=== PATIENT | male | born 1940 | race Caucasian/White ===

== ENCOUNTER 2023-07-14 12:02 | Outpatient (CLI) | payer MEDICARE, BC, SELFPAY ==
--- NOTE | 2023-07-14 12:17 | XR_ITS ---
FINAL REPORT CLINICAL HISTORY: RT SHOULDER PAIN FINDINGS: Right shoulder Two views were obtained. There is no acute fracture or dislocation. There are mild hypertrophic changes of the AC joint. The glenohumeral joint is intact. No soft tissue abnormality is identified. IMPRESSION: Mild hypertrophic changes of the AC joint. Reviewed, Interpreted and Dictated by Mati Carrera MD Transcribed by Oksana Drake Authenticated and [facility]
--- NOTE | 2023-07-14 12:19 | XR_ITS ---
FINAL REPORT CLINICAL HISTORY: LT SHOULDER PAIN FINDINGS: Left shoulder Two views were obtained. There is no acute fracture or dislocation. There are mild hypertrophic changes of the AC joint. The glenohumeral joint is intact. No soft tissue abnormality is identified. IMPRESSION: Mild hypertrophic changes of the AC joint. Reviewed, Interpreted and Dictated by Mati Carrera MD Transcribed by Oksana Drake Authenticated and [facility]
== END 2023-07-14 23:59 ==
PROVIDERS: PCP Family Medicine; Visit Provider Family Medicine
DX: M25.511 Pain in right shoulder (principal); M25.512 Pain in left shoulder
CPT/HCPCS: 73030

== ENCOUNTER 2024-07-06 13:41 | Outpatient (CLI) | payer MEDICARE, BC, SELFPAY ==
--- NOTE | 2024-07-06 14:03 | XR_ITS ---
FINAL REPORT CLINICAL HISTORY: Left shoulder pain COMPARISON: 07/14/2023 FINDINGS: Three views show no evidence of acute displaced fracture or dislocation of the visualized bony architecture. The joint spaces appear normal. IMPRESSION: Unremarkable exam. Reviewed, Interpreted and Dictated by Dede Calhoun MD Transcribed by Oksana Drake Authenticated and [facility]
== END 2024-07-06 23:59 | disposition home or self-care (01) ==
LOC: RAD 13:43
PROVIDERS: PCP Family Medicine; Visit Provider Physician Assistant Surgical
DX: M75.42 Impingement syndrome of left shoulder (principal)
CPT/HCPCS: 73030

== ENCOUNTER 2025-01-12 11:37 | Outpatient (CLI) | payer MEDICARE, BC, SELFPAY ==
--- OUTSIDE RECORDS SUMMARY | 2023-08-10 05:30 | XMS_ITS ---
[facility] Organization [facility] Address [address] [facility] [address] [place], [place] [id number] Care Team Providers Care Gastroenterology Technician Name Role Phone Tobi Valiente Unavailable [phone] Allergies No Known Allergies Results Component Value Reference Range Notes Glucose (In-House) Reviewed date:08/11/2023 09:55:00 AM Interpretation:104 Performing Lab: Notes/Report: 104 blood glucose 104 74 - 106 mg/dL Glycohemoglobin A1c (in hous e) Reviewed date:08/11/2023 09:55:00 AM Interpretation:8.4 Performing Lab: Notes/Report: 8.4 glycohemoglobin 8.4% 5 - 6.5 % P-Comprehensive Metabolic Pa jesus alberto (CMP) Reviewed date:08/11/2023 09:54:59 AM Interpretation:Normal Performing Lab: Notes/Report: CLIA: [id number] Kaiser Hairston MD, [employer] [facility] , [address], [place] [address] Test performed by [employer], [employer] Sodium 139 135-145 mEq/L Potassium 4.7 3.5-5.3 mEq/L Chloride 102 97-108 mEq/L CO2 25 22-32 mEq/L Glucose 87 65-99 mg/dL BUN 23 8-23 mg/dL Creatinine 0.95 0.70-1.30 mg/dL Calcium 9.4 8.6-10.4 mg/dL eGFR by Creatinine 80 >59 mL/min/1.73m2 Protein 6.3 6.0-8.3 g/dL Albumin 4.3 3.5-5.3 g/dL Alkaline Phosphatase 95 40-129 IU/L ALT (SGPT) 34 <5-55 IU/L AST (SGOT) 24 <5-46 IU/L Bilirubin, Total 0.9 <0.2-1.2 mg/dL A/G Ratio 2.1 1.1-2.5 mg/dL P-Lipid Panel Reviewed date:08/11/2023 09:55:00 AM Interpretation:hdl 34 Performing Lab: Notes/Report: Test performed by [employer], [address] , [place] [address] Kaiser Hairston MD, [employer] CLIA: [id number] Cholesterol 96 <200 mg/dL Triglycerides 79 <150 mg/dL HDL Cholesterol 34 >39 mg/dL Cholesterol / HDL Ratio 2.82 0.00-4.99 Ratio Non-HDL Cholesterol 62 <130 mg/dL LDL Cholesterol (Calculation) 46 <130 mg/dL LDL Cholesterol Levels* Less than 100 mg/dL Optimal 100 to 129 mg/dL Near Optimal/ Above Optimal 130 to 159 mg/dL Borderline High 160 to 189 mg/dL High 190 mg/dL and above Very High * Categories as recommended by the 2004 ATPIII guidelines LDL/HDL Ratio 1.4 <3.3 Ratio LDL Cholesterol Patient History Test Date: 08/10/2023 LDL Results: 46 Units: mg/dL % Change: - P-TSH reflex to FT4 Reviewed date:08/11/2023 09:55:00 AM Interpretation:Normal Performing Lab: Notes/Report: Test performed by [employer] [address] [place] [address] , [address], [place] [address] Kaiser Hairston MD, [employer] CLIA: [id number] TSH reflex to FT4 4.09 0.43-5.25 mU/L P-Microalbumin/Creatinine, R andom Urine Sample Reviewed date:08/11/2023 09:55:00 AM Interpretation:alb/creat 41 Performing Lab: Notes/Report: Test performed by [employer] [address] [place] [address] , [address], [place] [address] Kaiser Hairston MD, [employer] CLIA: [id number] Albumin/Creatinine Ratio, Urine 41 0-30 ug/m g Microalbumin, Urine, Random 2.1 Creatinine, Urine 51.4 REASON FOR VISIT 6 Month Check Up Medications Medication SIG (Take, Route, Frequency, Duration) Notes Start Date End Date Status Atorvastatin Calcium 80 MG 1 tab(s) orally once a day; Duration: 90 days Active [place]-3 1000 MG 1 cap(s) orally once a day; Duration: 30 day(s) Active Cyclobenzaprine HCl 5 MG 1 tablet at bed time as needed Orally Two times a day 06/22/2023 Not-Taking amLODIPine Besylate 2.5 MG Take 1 tablet by mouth once daily; Duration: 90 Active Toujeo SoloStar 300 UNIT/ML inject 42 units subcutaneously once daily as directed; Duration: 90 days Active metFORMIN HCl ER 500 MG take 2 tablets b y mouth once daily; Duration: 90 days Active Aspirin 81 MG 1 tablet Orally Once a day; Duration: 30 day(s) Active Metoprolol Succinate ER 100 MG take 1 tablet by mouth once daily Orally; Duration: 90 days Active glipiZIDE 5 MG take 1 tablet by ching th once daily; Duration: 90 days Active Telmisartan 80 MG take 1 tablet by ching th once daily Orally; Duration: 90 days Active traMADol HCl 50 MG 1 tab(s) Orally q6h prn 024 Not-Taking Vital Signs Blood pressure systolic 140 mm Hg 04/23/20 24 Blood pressure diastolic 76 mm Hg 024 Heart Rate 56 /min 08/10/2023 Weight 173.8 lbs 08/10/2023 Encounters Encounter Location Date Provider Diagnosis [facility] [address] [place] [address] [place], [place] [id number] 08/10/2023 Tobi Valiente Type 2 diabetes yoshi itus without complications E11.9 ; Primary hypertension I10 and Mixed hyperlipidemia E78.2 Assessments Encounter Date Diagnosis (ICD Code) Assessment Notes Treatment Notes Treatment Clinical Notes Section Notes 08/10/2023 Type 2 diabetes mellitus without complications (ICD-10 - E11.9) 08/10/2023 Primary hypertension (ICD-10 - I10) 08/10/2023 Mixed hyperlipidemia (ICD-10 - E78.2) Plan Of Treatment Medication Medication Name Sig Start Date Stop Date Notes metFORMIN HCl ER 500 MG take 2 tablets b y mouth once daily; Duration: 90 days Metoprolol Succinate ER 100 MG take 1 ta blet by mouth once daily Orally; Duration: 90 days glipiZIDE 5 MG take 1 tablet by ching th once daily; Duration: 90 days Telmisartan 80 MG take 1 tablet by ching th once daily Orally; Duration: 90 days Next Appt Details Follow Up: 6 Months, Reason: Provider Name:Tobi mccracken, 01/12/2025 10:45:00 AM, [address] [place] [address], [address] [place], [place], [phone], Provider Name:Tobi mccracken, 02/09/2025 10:00:00 AM, [address] [place] [address], [place], [place], [phone], Progress Notes * Hayden HIGGINSDOB:1940 (84 yo M)Acc No.[id number]:08/10/2023 Progress Notes Patient: Hayden TATE Provider: Ramirez Valiente M.D. :1940 A ge:82 Y S ex:Male Date:08/10/2023 Address:[address] [place] [address] Subjective: * Chief Complaints: * 1 . 6 Month Check Up. * HPI: C ardiology: 82 year old male presents with c/o Blood Pressure Elevated P t here for 6 mo f/u on hypertension, states he is doing well and does not have any concerns. c/o Hyperlipidemia p t is fasting today. E ndocrinology: c/o Recent Blood Sugars. * ROS: D ERMATOLOGY: no R abdelrahman. n o H phillip. G ASTROENTEROLOGY: no N ausea. n o V omiting. U ROLOGY: no D ifficulty urinating. n o B lood in urine. * Medical History: H ypertension, Hyperlipidemia, Diabetes, Sinus/Allergy, Arthritis, Prostate Problems. * Surgical History: P rostatectomy . * Hospitalization/Major Diagno stic Procedure: D enies Past Hospitalization. * Family History: Diabetes-aunt and great aunt Cancer-sister. * Social History: C URRENT TOBACCO USE: No . C affeine: no. Marital Status: . Alcohol: no. * Medications: T aking Aspirin 81 MG Tablet Delayed Release 1 tablet Orally Once a day , Taking [place]-3 1000 MG Capsule 1 cap(s) orally once a day , Taking Atorvastatin Calcium 80 MG Tablet 1 tab(s) orally once a day , Taking Telmisartan 80 MG Tablet Take 1 tablet by mouth once daily Orally , Taking metFORMIN HCl ER 500 MG Tablet Extended Release 24 Hour Take 2 tablets by mouth once daily , Taking Metoprolol Succinate ER 100 MG Tablet Extended Release 24 Hour Take 1 tablet by mouth once daily , Taking glipiZIDE 5 MG Tablet Take 1 tablet by mouth once daily , Taking Toujeo SoloStar 300 UNIT/ML Solution Pen-injector inject 42 units subcutaneously once daily as directed , Taking amLODIPine Besylate 2.5 MG Tablet Take 1 tablet by mouth once daily , Not-Taking Cyclobenzaprine HCl 5 MG Tablet 1 tablet at bedtime as needed Orally Two times a day , Not-Taking traMADol HCl 50 MG Tablet 1 tab(s) Orally q6h prn , Medication List reviewed and reconciled with the patient * Allergies: N .K.D.A. Objective: * Vitals: W t:173.8, Temp:98.1, BP:140/76, HR:56, Nurse:monroe. * Examination: E ndocrinology: General Appearance: N AD. H eart: R SR. L ungs:?clear to auscultation. E xtremities: n o leg edema. Assessment: * Assessment: 1. T ype 2 diabetes mellitus without complications - E11.9 (Primary) 2 . P rimary hypertension - I10 3 . M ixed hyperlipidemia - E78.2 Plan: * Treatment: Value Reference Range A /G Ratio 2.1 1.1-2.5 - mg/dL * A lbumin 4.3 3.5-5.3 - g/dL * A lkaline Phosphatase 95 40-129 - IU/L * A LT (SGPT) 34 <5-55 - IU/L * A ST (SGOT) 24 <5-46 - IU/L * B ilirubin, Total 0.9 <0.2-1.2 - mg/dL * B UN 23 8-23 - mg/dL * C alcium 9.4 8.6-10.4 - mg/dL * C hloride 102 97-108 - mEq/L * C O2 25 22-32 - mEq/L * C reatinine 0.95 0.70-1.30 - mg/dL * G lucose 87 65-99 - mg/dL * P otassium 4.7 3.5-5.3 - mEq/L * S odium 139 135-145 - mEq/L * P rotein 6.3 6.0-8.3 - g/dL * e GFR by Creatinine 80 >59 - mL/min/1.73m2 * Brooklyn Beckwith 08/11/2023 9:53 :27 AM >See phone encounter ?LAB: P-TSH reflex to FT4 (Collection Date & Time - 08/10/2023 08:55 AM)? Normal* Value Reference Range T SH reflex to FT4 4.09 0.43-5.25 - mU/L * Brooklyn Beckwith 08/11/2023 9:53 :27 AM >See phone encounter ?LAB: P-Microalbumin/Creatinine, Random Urine Sample (Collection Date & Time - 08/10/2023 08:55 AM)?alb/creat 41* Value Reference Range A lbumin/Creatinine Ratio, Urine 41 H 0-30 - ug /mg * C reatinine, Urine 51.4 - mg/dL * M icroalbumin, Urine, Random 2.1 - mg/dL * Brooklyn Beckwith 08/11/2023 9:53 :27 AM >See phone encounter ?LAB: Glucose (In-House) (Collection Date & Time - 08/10/2023)?104* Value Reference Range b lood glucose 104 74 - 106 mg/dL * AdyGeorgette 08/10/2023 1 0:17:25 AM > Brooklyn Beckwith 08/11/2023 9:53:27 AM >See phone encounter ?LAB: Glycohemoglobin A1c (in house) (Collection Date & Time - 08/10/2023)? 8.4* Value Reference Range g lycohemoglobin 8.4% 5 - 6.5 % * AdyGeorgette 08/10/2023 1 0:20:29 AM > Brooklyn Beckwith 08/11/2023 9:53:27 AM >See phone encounter 2.?Primary hypertension? Refill Metoprolol Succinate ER Tablet Extended Release 24 Hour, 100 MG, take 1 tablet by mouth oncedaily, Orally, 90 days, 90, Refills 1;?Refill Telmisartan Tablet, 80 MG, take 1 tablet by mouth once daily, Orally, 90 days, 90, Refills 1.?LAB: P-Comprehensive Metabolic Panel (CMP) (Collection Date & Time - 08/10/2023 08:55 AM)?Normal* Value Reference Range A /G Ratio 2.1 1.1-2.5 - mg/dL * A lbumin 4.3 3.5-5.3 - g/dL * A lkaline Phosphatase 95 40-129 - IU/L * A LT (SGPT) 34 <5-55 - IU/L * A ST (SGOT) 24 <5-46 - IU/L * B ilirubin, Total 0.9 <0.2-1.2 - mg/dL * B UN 23 8-23 - mg/dL * C alcium 9.4 8.6-10.4 - mg/dL * C hloride 102 97-108 - mEq/L * C O2 25 22-32 - mEq/L * C reatinine 0.95 0.70-1.30 - mg/dL * G lucose 87 65-99 - mg/dL * P otassium 4.7 3.5-5.3 - mEq/L * S odium 139 135-145 - mEq/L * P rotein 6.3 6.0-8.3 - g/dL * e GFR by Creatinine 80 >59 - mL/min/1.73m2 * Brooklyn Beckwith 08/11/2023 9:53 :27 AM >See phone encounter 3.?Mixed hyperlipidemia?LAB: P-Comprehensive Metabolic Panel (CMP) (Collection Date & Time - 08/10/2023 08:55 AM)?Normal* Value Reference Range A /G Ratio 2.1 1.1-2.5 - mg/dL * A lbumin 4.3 3.5-5.3 - g/dL * A lkaline Phosphatase 95 40-129 - IU/L * A LT (SGPT) 34 <5-55 - IU/L * A ST (SGOT) 24 <5-46 - IU/L * B ilirubin, Total 0.9 <0.2-1.2 - mg/dL * B UN 23 8-23 - mg/dL * C alcium 9.4 8.6-10.4 - mg/dL * C hloride 102 97-108 - mEq/L * C O2 25 22-32 - mEq/L * C reatinine 0.95 0.70-1.30 - mg/dL * G lucose 87 65-99 - mg/dL * P otassium 4.7 3.5-5.3 - mEq/L * S odium 139 135-145 - mEq/L * P rotein 6.3 6.0-8.3 - g/dL * e GFR by Creatinine 80 >59 - mL/min/1.73m2 * Brooklyn Beckwith 08/11/2023 9:53 :27 AM >See phone encounter ?LAB: P-Lipid Panel (Collection Date & Time - 08/10/2023 08:55 AM)?hdl 34* Value Reference Range C holesterol / HDL Ratio 2.82 0.00-4.99 - Ratio * C holesterol 96 <200 - mg/dL * H DL Cholesterol 34 L >39 - mg/dL * L DL Cholesterol (Calculation) 46 <130 - mg/d L * L DL/HDL Ratio 1.4 <3.3 - Ratio * N on-HDL Cholesterol 62 <130 - mg/dL * T riglycerides 79 <150 - mg/dL * Brooklyn Beckwith 08/11/2023 9:53 :27 AM >See phone encounter * Procedure Codes: G 2211 Complex e/[place], [address] GLUCOSE TEST, 57909 GLYCATED HEMOGLOBIN TEST, Modifiers: QW * Follow Up: 6 Months * Images: Billing Information: * Visit Code: 00739 Office Visit, Est Pt., Level 4. * Procedure Codes: G2211 Complex e/[place]. [address] GLUCOSE TEST. 15473 GLYCATED HEMOGLOBIN TEST. Modifiers: QW * Electronic signature of Nicol Valiente MD on 01/12/2025 at 11:39 AM EDT Sign off status: Pending * Provider: Ramirez Valiente M.D. Date: 0 08/10/2023 Generated for Cheri orellana/Julia/Marthasmitting on: 0 01/12/2025 11:39 AM EDT History and Physical Notes * HPI (History of Present Illness) Category Sub-Category Detail Notes Category Not es Endocrinology Recent Blood Sugars Cardiology Blood Pressure Elevated Pt here for 6 mo f/u on hypertension, states he is doing well and does not have any concerns Hyperlipidemia pt is fasting today Examination Category Sub-Category Detail Notes Category Not es Endocrinology Heart: RSR Lungs: clear to auscultatio n Extremities: no leg edema General Appearance: NAD
--- OUTSIDE RECORDS SUMMARY | 2023-08-23 07:30 | XMS_ITS ---
Author Organization [facility] Address [address] [facility] [address] [place] [id number] Care Team Providers Care Chief Nursing Executive Name Role Phone Tobi Valiente Unavailable [phone] Results Component Value Reference Range Notes Glucose [...] 1 tab(s) Orally q6h prn 06/22/2023 Not-Taking Nome-3 1000 MG 1 cap(s) orally once a [...] Active Encounters Encounter Location Date Provider Diagnosis [facility] [address] [facility] [address] [place] [id number] 08/23/2023 Tobi Valiente Plan Of Treatment Next Appt Details Provider Name:Tobi Bland kaykay, 01/12/2025 10:45:00 AM, [address] [facility] [address], [address], [place], [id number], Provider Name:Tobi Bland kaykay, 02/09/2025 10:00:00 AM, [address] [facility] [address] [facility], [address], [place], [phone], Progress Notes * Hayden HIGGINSDOB:1940 (84 yo M)Acc No.[id number]:08/23/2023 Patient: Hayden TATE Provider: Ramirez Valiente M.D. :1940 A ge:82 Y S ex:Male Date:08/23/2023 Address:[address] [place] [address] Subjective: * Chief Complaints: * 1 . Test blood sugar. * Medical History: * Medications: T aking Aspirin 81 MG Tablet Delayed Release 1 tablet Orally Once a day , Taking Nome-3 1000 MG Capsule 1 cap(s) orally once [...] 242 74 - 106 mg/dL * Georgette aGrsia 08/23/2023 11 :48:49 AM >Radha Huerta 09/06/2023 10:54:58 AM > patient was without insulin at the time. Per ARAMIS- Dr. Valiente reviewed results. * Procedure Codes: 3 6416 CAPILLARY BLOOD DRAW, 38264 GLUCOSE TEST * Images: Billing Information: * Visit Code: * Procedure Codes: 00516 CAPILLARY BLOOD DRAW. 18990 GLUCOSE TEST. * Electronic signature of Nicol Valiente MD on 01/12/2025 at 11:40 AM EDT Sign off status: Pending * Provider: Ramirez Valiente M.D. Date: 0 08/23/2023 Generated for Cheri orellana/Julia/Marthasmitting on: 0 01/12/2025 11:40 AM EDT
--- OUTSIDE RECORDS SUMMARY | 2024-02-09 05:45 | XMS_ITS ---
Author [facility] Address [address] [place], [place] [id number] Care Team Providers Care Head Filter Tank Tender Helper Name Role Phone Tobi Valiente Unavailable [phone] Allergies No Known Allergies Results Component Value [...] 54, bun 24 Performing Lab: Notes/Report: CLIA: [id number] Kaiser Hairston MD, Freight Delivery Driver [facility]0 [facility] , [address], [place] [address] Test performed by [employer] Sodium 144 135-145 mmol/L Potassium 4.4 3.5-5.3 [...] 37 Performing Lab: Notes/Report: Test performed by [facility], [address] , [address], [place] [address] Kaiser Hairston MD, Freight Delivery Driver CLIA: [id number] Cholesterol 110 <200 mg/dL Triglycerides 62 <150 [...] once daily Orally; Duration: 90 days Active Rex-3 1000 MG 1 cap(s) orally once a [...] Provider Diagnosis [facility] [address] [place] [phone] 02/09/2024 Tobi Valiente Type 2 diabetes yoshi [...] Reason: Provider Name:Tobi mccracken, 01/12/2025 10:45:00 AM, [address] [place] [address], [address], [place], [place], [id number], Provider Name:Tobi mccracken, 02/09/2025 10:00:00 AM, [address] [place] [address], [facility], [place], [place], [id number], Progress Notes * Hayden HIGGINSDOB:1940 (84 yo M)Acc No.[id number]:02/09/2024 Progress Notes Patient: Hayden TATE Provider: Ramirez Valiente M.D. :1940 A ge:83 Y S ex:Male Date:02/09/2024 Address:[address] [place], [place] [id number] Subjective: * Chief Complaints: * 1 . [...] tablet Orally Once a day , Taking Rex-3 1000 MG Capsule 1 cap(s) orally once [...] T riglycerides 62 <150 - mg/dL * Radha Huerta 02/10/2024 8:36 :07 AM >See phone encounter * Immunizations: Fluzone High Dose (65yr and older) : 0.5 mL (Route: Intramuscular) given by Mary Ellen Salvador on Left Deltoid (Encounter for immunization) PNEUMOVAX 23 VACCINE : 0.5 mL (Route: Intramuscular) given by Mary Ellen Salvador on Left Deltoid (Encounter for immunization) * Procedure Codes: 8 2950 GLUCOSE TEST, 22737 GLYCATED HEMOGLOBIN TEST, Modifiers: QW * Follow Up: 6 Months * Images: Billing Information: * Visit Code: 51242 Office Visit, Est Pt., Level 4. * Procedure Codes: 25217 GLUCOSE TEST. 63281 GLYCATED HEMOGLOBIN TEST. Modifiers: QW * Electronic signature of Nicol Valiente MD on 01/12/2025 at 11:39 AM EDT Sign off status: Pending * Provider: Ramirez Valiente M.D. Date: Generated for Cheri orellana/Julia/eTransmitting on: 0 01/12/2025 11:39 AM EDT History [...]
--- OUTSIDE RECORDS SUMMARY | 2024-08-09 05:15 | XMS_ITS ---
Author Organization [facility] Address [address] [facility] [address] [place], [place] [id number] Care Team Providers Care Tire Technician Name Role Phone Tobi Valiente Unavailable [phone] Allergies No Known Allergies Results Component Value Reference Range Notes P-Comprehensive Metabolic Pa jesus alberto (CMP) Reviewed date:08/10/2024 08:47:18 AM Interpretation:gluc 57 Performing Lab: Notes/Report: Test performed by [facility] [address] [place] [address] , [address], [place] [address] Kaiser Hairston MD, House Coordinator CLIA: [id number] Sodium 144 135-145 mmol/L Potassium 4.2 3.5-5.3 [...] Interpretation:9.4 Performing Lab: Notes/Report: Test performed by [facility] [address] [place], [place] [address] [place] [address], [place] [address] Kaiser Hairston MD, House Coordinator CLIA: [id number] Hemoglobin A1C 9.4 <5.7 % The following HbA1c ranges recommended by the [place] Diabetes [employer] (ADA) may be used as an aid in the diagnosis of diabetes mellitus. HbA1c Suggested Diagnosis >=6.5% Diabetic 5.7% - 6.4% Pre-Diabetic <5.7% Non-Diabetic P-Lipid Panel Reviewed date:08/10/2024 08:47:18 AM Interpretation:hdl 33 Performing Lab: Notes/Report: Test performed by [facility] [address] [place], [place] [address] [address], [place] [address] Kaiser Hairston MD, House Coordinator CLIA: [id number] Cholesterol 108 <200 mg/dL Triglycerides 66 <150 [...] Normal Performing Lab: Notes/Report: Test performed by [facility] [address] [place] [address] , [place] [address] Kaiser Hairston MD, House Coordinator CLIA: [id number] TSH reflex to FT4 3.72 0.43-5.25 mU/L P-Microalbumin/Creatinine, R andom Urine Sample Reviewed date:08/10/2024 08:47:18 AM Interpretation: Normal Performing Lab: Notes/Report: Test performed by [facility] [address] [place] [address] , [place] [address] Kaiser Hairston MD, House Coordinator CLIA: [id number] Albumin/Creatinine Ratio, Urine 58 0-30 ug/m g Microalbumin, Urine, Random 4.9 Creatinine, Urine 84.7 Estimated Average Glucose Reviewed date:08/10/2024 08:47:18 AM Interpretation: Normal Performing Lab: Notes/Report: Test performed by [facility] [address] [place] [address] , [address], [place] [address] Kaiser Hairston MD, House Coordinator IA: [id number] Estimated Average Glucose (eAG) 223 Estimated Average [...] once daily Orally; Duration: 90 days Active [place]-3 1000 MG 1 cap(s) orally once a [...] Provider Diagnosis [facility] [address] [facility] [address] [place] [address], [place] [phone] 08/09/2024 Tobi Valiente Type 2 diabetes yoshi [...] Reason: Provider Name:Tobi mccracken, 01/12/2025 10:45:00 AM, [address] [place] [address], [address], [place], [place], [phone], Provider Name:Tobi mccracken, 02/09/2025 10:00:00 AM, [address] [place] [address], [address], [place], [place], [id number], Progress Notes * GISELA, HaydenDOB:1940 (84 yo M)Acc No.[id number]:08/09/2024 Progress Notes Patient: Hayden TATE Provider: Ramirez Valiente M.D. :1940 A ge:83 Y S ex:Male Date:08/09/2024 Address:[address] [place] [address] Subjective: * Chief Complaints: * 1 . 6 month f/u. * HPI: C ardiology: 83 year old male presents with c/o Blood Pressure Elevated?Pt here for 6 mo f/u on hypertension, [...] tablet Orally Once a day , Taking [place]-3 1000 MG Capsule 1 cap(s) orally once [...] hronic diarrhea - K52.9 5 . B CA 27.0-27.9,adult - Z68.27 Plan: * Treatment: Value [...] stimated Average Glucose 223 - mg/dL * [facility], IT support 08/10/2024 06:20:03 : This order [...] * Images: Billing Information: * Visit Code: 24004 Office Visit, Est Pt., Level 4. * [...] M.D. Date: 0 08/09/2024 Generated for Cheri orellana/Julia/Essenceitting on: 0 01/12/2025 11:40 AM EDT History and Physical Notes * [...]
--- OUTSIDE RECORDS SUMMARY | 2025-01-12 11:40 | XMS_ITS ---
Author Organization Unknown Vital Signs BpStanding BpSitting BpSupine Date Temperature HeartRate Weight Hei ght Spo2 Respiration Bmi HeadCircumference FieldCount TimeRecorded NeckCircumferen ce WaistCircumference Pulse 140/84 08/09 00:00 :00 97.9 55 177,9.6 0 5,8 27 6 11/14/2024 09:15:00 140/74 02/08 00:00 :00 97.8 58 177,0 4 11/14/2024 09:45:00
--- OUTSIDE RECORDS SUMMARY | 2025-01-12 11:40 | XMS_ITS | Clinical Summary ---
Author Organization [facility] Address [address] [place] [address] Care Team Providers Care Boilermaker Welder Name Role Phone Chintan Phillips MD Primary Care Provider [phone] Allergies No known active allergies Medications omega-3 acid ethyl esters (LOVAZA) 1 g capsule Take 2 g by mouth 2 (Two) Times a Day. 1 Active metFORMIN ER (GLUCOPHAGE-XR ) 500 MG 24 hr tablet TAKE 2 TABLETS BY MOUTH ONCE DAILY AT SUPPER TIME 1 Active metoprolol succinate XL (TOPROL-XL) 100 MG 24 hr tablet Take 100 mg by mouth Every Morning. 1 Active atorvastatin (LIPITOR) 80 MG tablet 1 Active telmisartan (MICARDIS) 80 MG tablet 1 Active glipizide (GLUCOTROL XL) 5 MG ER tablet 1 Active amLODIPine (NORVASC) 2.5 MG tablet 1 Active ASPIRIN 81 PO Take by mouth. 3 Active Toujeo SoloStar 300 UNIT/ML solution pen-injector injection INJECT 42 UNITS SUBCUTANEOUSLY IN THE EVENING 1 Active Active Problems No known active problems Family History Medical History Relation Name Comments Diabetes Maternal Aunt Diabetes Paternal Aunt Relation Name Status Comments Maternal Aunt Paternal Aunt Social History Tobacco Use Types Packs/Day Years Used Date Smoking Tobacco: Former Cigarettes 1 16 1 - 1977 Smokeless Tobacco: Former Chew Alcohol Use Standard Drinks/Week Comments Never 0 (1 standard drink = 0.6 oz pur e alcohol) AUDIT-C Answer Date Recorded Q1: How often do you have a drink containing alc ohol? Never 07/15/2020 Average Number of Drinks Not on file Frequency of Binge Drinking Not on file 06/18 Abuse Screen Answer Date Recorded Unsafe at Home or Work/School Not on file Feels Threatened by Someone? Not on file 12/2022 Does Anyone Keep You from Co ntacting Others or Doint Things Outside the Home? Not on file 01/25/2023 Physical Sign of Abuse Present Not on file 1 Housing Stability Answer Date Recorded Current Living Arrangements Not on file 12/2022 Potentially Unsafe Housing Conditions Not on baldomero e 01/25/2023 Family and Community Support Answer Brown e Recorded Help with Day-to-Day Activities Not on file 01/25/2023 Lonely or Isolated Not on file 01/25/2023 Employment Answer Date Recorded Do you want help finding or keeping work or a sydni b? Not on file 01/25/2023 Disabilities Answer Date Recorded Concentrating, Remembering, or Making Decisions Difficulty Not on file 01/25/2023 Doing Errands Independently Difficulty Not on fi le 01/25/2023 Education Answer Date Recorded Help with school or training? Not on file Preferred Language Not on file 01/25/2023 Sex and Gender Information Value Date Recorded Sex Assigned at Not on file Legal Sex Male 10:38 AM EDT Gender Identity Not on file Sexual Orientation Not on file Last Filed Vital Signs Vital Sign Reading Time Taken Comments Blood Pressure 166/73 08/21/2020 11:41 AM EDT Pulse 64 08/21/2020 11:41 AM EDT Temperature 36.9 C (98.4 F) 03/06/2013 1:40 PM EST Respiratory Rate - - Oxygen Saturation 96% 03/06/2013 1:40 PM EST Inhaled Oxygen Concentration - - Weight 77.9 kg (171 lb 12.8 oz) 021 11:41 AM EDT Height 172.7 cm (5' 7.99 ) 08/21/2020 1 1:41 AM EDT Body Mass Index 26.13 08/21/2020 11:41 AM EDT Plan of Treatment Health Maintenance Due Date Last Done Comments TDAP/TD VACCINES (1 - Tdap) 1960 ZOSTER VACCINE (1 of 2) 12/20/1991 Pneumococcal Vaccine 50+ (2 of 2 - PCV) 04/24/2000 0 04/24/1999 RSV Vaccine - Adults (1 - 1- dose 75+ series) 2016 ANNUAL PHYSICAL 07/15/2020 INFLUENZA VACCINE 11/17/2024 12/27/2019 COVID-19 Vaccine (2024- season) 2024, 06/13/2020 Insurance [facility] MEDICARE A & B Care Teams Boilermaker Welder Relationship Specialty Start Date End Date Chintan Phillips MD [address] [place] [address] PCP - General Family Medicine 07/15/20
--- OUTSIDE RECORDS SUMMARY | 2025-01-12 11:40 | XMS_ITS | Clinical Summary ---
Author Organization [facility] Address [address] [place] [address] Phone Care Team Providers Care Analysis Evaluator Name Role Phone Status, Fax Unavailable Conditions or Problems Problem Name Problem Code Onset Date Status Entry Date Provider Comment Standard Description Annotate Headache 69935782 (SNOMED CT) 07/17 Active 07/17 Sima Mayes Headache ADR T50.905A (ICD-10-CM) 07/17 Active 07/17 Sima Mayes Adverse effect of unspecified drugs, medicaments and biological substances, initial encounter Lung mass 984043189 (SNOMED CT) 05/08 Active 05/08 Moriah Nordan Lung mass 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 05/08 Moriah Artur Pneumonia in diseases classified elsewhere Medications Medication Instructions Start Date Stop Date Generic Name NDC Provider ITRACONAZOLE 100 MG CAPS take 2 o bid ITRACONAZOLE [id number] Gallo Oviedo MD ITRACONAZOLE 100 MG CAPS take 2 po tid x 3 days then take 2 po bid with carbonated beverage ITRACONAZOLE [id number] Gallo Oviedo MD ITRACONAZOLE 100 MG CAPS take 2 o bid ITRACONAZOLE [id number] Gallo Oviedo MD MULTIVITAMINS ORAL CAPSULE MULTIPLE VITAMIN [id number] Elena Z ITRACONAZOLE 100 MG CAPS take 2 po bid ITRACONAZOLE [id number] Elena Z ITRACONAZOLE 100 MG CAPS take 2 po bid ITRACONAZOLE [id number] Gallo Oviedo MD ITRACONAZOLE 100 MG CAPS take 2 po tid x 3 days then take 2 po bid with carbonated beverage ITRACONAZOLE [id number] Gallo Oviedo MD MULTIVITAMINS ORAL CAPSULE MULTIPLE VITAMIN [id number] Melodie Sutherland TOPROL XL 50 MG [id number] METOPROLOL SUCCINATE [id number] Melodie Sutherland PRAVACHOL 40 MG ORAL TABLET PRAVASTATIN SODIUM 10384795669 Melodie Sutherland MULTIVITAMINS ORAL CAPSULE MULTIPLE VITAMIN 74190620051 Melodie Sutherland METFORMIN HCL 1000 MG TABS METFORMIN HCL 36872210213 Melodie Sutherland LOVAZA 1 GM CAPS [id number] ETHYL ESTERS 81071616713 Melodie Sutherland LEVEMIR SOLUTION INSULIN DETEMIR SOLN [id number] Melodie Sutherland DIOVAN 160 MG TABS VALSARTAN [id number] Melodie Sutherland ADULT ASPIRIN EC LOW STRENGTH 81 MG ORAL TABLET DELAYED RELEASE ASPIRIN 47017040974 Melodie Sutherland ACTOS 30 MG TABS PIOGLITAZONE HCL 41151932141 Melodie Sutherland Medications Administered No information available. Allergies, Adverse Reactions, Alerts No information available. Results Date Name Value Unit Range Flag Description Lab Report: Histoplasma Anti gen, Urine, Histoplasma Antigen, Serum HIS AG UR 0.00 EU {EIA'U} Histoplasma capsulatum Ag [Units/volume] in Urine by Immunoassay Lab Report: Comprehensive [place] tabolic Panel ANIONGAP 3 mmol/L 3-11 N anion gap, s apollo GFRC 113 mL/min/1. 73m2 Glomerular Filtration Rate Calculation ALBUMIN 4.4 g/dL 3.2-4.8 N Albumin [Mass/volume] in Serum or Plasma PROTEIN, TOT 7.1 g/dL 5.7-8.2 N Protein [Mass/volume] in Serum or Plasma BILI TOTAL 0.7 mg/dL 0.3-1.2 N Bilirubin. total [Mass/volume] in Serum or Plasma SGPT (ALT) 20 U/L 7-40 N Alanine aminotransferase [Enzymatic activity/volume] in Serum or Plasma SGOT (AST) 24 U/L 0-33 N Aspartate aminotransferase [Enzymatic activity/volume] in Serum or Plasma ALK PHOS 72 U/L 25-100 N Alkaline pascual sphatase [Enzymatic activity/volume] in Blood CALCIUM 9.5 mg/dL 8.7-10.4 N Calcium [Moles/volume] in Serum or Plasma CO2 33 mmol/L 20-31 H Carbon dioxid e, total [Moles/volume] in Venous blood CHLORIDE 105 mmol/L 99-109 N Chloride [Moles/volume] in Serum or Plasma POTASSIUM 4.3 mmol/L 3.5-5.5 N Potassium [Moles/volume] in Serum or Plasma SODIUM 141 mmol/L 132-146 N Sodium [Moles/volume] in Serum or Plasma CREATININE 0.7 mg/dL 0.6-1.3 N Creatinine [Mass/volume] in Serum or Plasma BUN 17 mg/dL 9-23 N Urea nitrogen [Mass/volume] in Serum or Plasma GLUCOSE SER 96 mg/dL 70-100 N Glucose [Mass/volume] in Serum or Plasma Lab Report: Itraconazole, Se rum/Plasma [id number] 1.4 ug/mL GE use only - for LinkLogic import when terms are not otherwise specified Office Visit: rm6 MEDS REVIEW Done Documenta tion of current medications (procedure) SMOK STATUS Former smoker Tobacco smoking status Plan of Care Type Date Detail Pending order Continue oral an tibiotics Pending order CMP Pending order Itraconazole Lev el Pending order Continue oral an tibiotics Pending order Continue oral an tibiotics Pending order CMP Pending order Itraconazole Lev el Pending order CMP Pending order Itraconazole Lev el Pending order CMP Pending order T-SPOT Pending order Histoplasmosis U rinary AG Pending order Other Procedures Code Procedure Name Date Entry Date CPT-Cooral Continue oral antibiotics 20 01/10/03 CPT-49518 CMP CPT-96683 Itraconazole Level 4 CPT-Cooral Continue oral antibiotics 20 31/07/29 CPT-Cooral Continue oral antibiotics 20 30/06/25 CPT-63661 CMP CPT-05614 Itraconazole Level 6 CPT-79765 [facility] CPT-33669 Itraconazole Level 6 CPT-50870 [facility] CPT-97253 T-SPOT CPT-46882 Histoplasmosis Urinary AG 20 02/05/27 CPT-LAB Other Vital Signs Date Name Value Unit Description BMI (Body Mass Index) 27.59 kg/m2 Bod y Mass Index (Ratio) Body Temperature 98.0 [degF] temperat ure E&M BP Diastolic 68 mm[Hg] blood pressu re, diastolic BP Systolic 150 mm[Hg] blood pressur e, systolic Heart Rate 70 /min pulse rate Height 68 [in_us] height E&M Respiratory Rate 14 /min respirat ory rate E&M Weight Measured 180.8 [lb_av] weight E& M Weight Measured 180.8 [lb_av] weight E& M Immunizations No information available. Advance Directives No information available.
--- OUTSIDE RECORDS SUMMARY | 2025-01-12 11:40 | XMS_ITS | Clinical Summary ---
Author Organization [facility] Address [address] [place] [address] Care Team Providers Care Patient Account Specialist Name Role Phone Chintan Phillips MD Primary Care Provider [phone] Allergies No known active allergies Medications Aspirin Buf,CaCarb-MgCarb- MgO, 81 MG tablet 08/18/2016 A ctive atorvastatin (Lipitor) 80 MG tablet 07/06/2017 Active glipiZIDE XL (Glucotrol XL) 5 MG 24 hr tablet 07/13/2017 Act freedom insulin glargine (Toujeo SoloStar) 300 UNIT/ML injection 04/29/2017 Active metFORMIN (Glucophage) 1000 MG tablet 06/13/2015 Active metoprolol succinate XL (Toprol-XL) 100 MG 24 hr tablet 06/13/2015 Active omega-3 (Fish Oil) 1000 MG capsule 07/03/2015 Act freedom valsartan (Diovan) 160 MG tablet 01/24/2015 Activ e Active Problems Problem Noted Date Diagnosed Date 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 02/04/2022 Glaucoma suspect of both eyes 12/17/2020 Type 2 diabetes mellitus wit h hyperosmolarity without coma, with long-term current use of insulin 12/17/2020 Dermatochalasis of both upper eyelids 12/17/2020 Resolved Problems Problem Noted Date Diagnosed Date Resolved Date Presbyopia 02/04/2022 01/07/2025 Regular astigmatism of both eyes 02/04/2022 01/07/2025 Nuclear sclerotic cataract of both eyes 12/17/2020 01/07/2025 Asteroid hyalosis of left eye 12/17/2020 02/04/2022 Family History Medical History Relation Name Comments Cardiac disorder Maternal Grandmother Cardiac disorder Other 1 Diabetes Other 2 Other cancer Sister Relation Name Status Comments Maternal Grandmother Other 1 Other 2 Sister Social History Tobacco Use Types Packs/Day Years Used Date Smoking Tobacco: Former Cigarettes Q uit: 1970 Smokeless Tobacco: Never Tobacco Cessation:Counseling Given: Not Answered Alcohol Use Standard Drinks/Week Comments No 0 (1 standard drink = 0.6 oz pur e alcohol) Sex and Gender Information Value Date Recorded Sex Assigned at Not on file Legal Sex Male 6:14 PM EDT Gender Identity Not on file Sexual Orientation Not on file Plan of Treatment Health Maintenance Due Date Last Done Comments [facility]-Depression Screening 1940 [facility]-Diabetes: Hemoglobin A1C 1940 [facility]-Medicare Annual Wellness (AWV) 1940 [facility]-/Child/Adol SDOH Screenings 1940 Diabetes: Dental Exam 12/20/1951 [facility]- SDOH Screenings 12/20/1959 [facility]-Adult SDOH Screenings 12/20/1959 [facility]-DTaP,Tdap,and Td Vaccines (1 - Tdap) 1960 [facility]-Zoster Vaccines (1 of 2) 12/20/1991 [facility]-Pneumococcal Vaccine: 50+ Years (2 of 2 - PCV) 04/24/2000 04/24/1999 [facility]-RSV Vaccine: 60+ Years or (1 - 1-dose 75+ series) 2016 ZNY-[id number]-30 Vaccine (4 - season) 2024 02/12/2021, 07/11/2020, 06/13/2020 [facility]-Influenza Vaccine (#1) 2024 12/27/2019 [facility]-Hepatitis A Vaccines Aged Out 02/02/2019 No longer eligible based on patient's age to complete this topic HPV Vaccines Aged Out No longer eligi ble based on patient's age to complete this topic [facility]-HIB Vaccines Aged Out No longer e ligible based on patient's age to complete this topic [facility]-IPV Vaccines Aged Out No longer e ligible based on patient's age to complete this topic [facility]-Rotavirus Vaccines Aged Out No lo nger eligible based on patient's age to complete this topic Insurance MEDICARE ANTH Care Teams Patient Account Specialist Relationship Specialty Start Date End Date Chintan Phillips MD [address] [place] [id number] PCP - General 08/30/20
--- OUTSIDE RECORDS SUMMARY | 2025-01-12 11:40 | XMS_ITS | Patient Health Record ---
[facility] Organization [facility] [address] [facility] [address] [place] [id number] Care Team Providers Care Oil Well Service Unit Operator Name Role Phone Tobi Valiente Unavailable [phone] Allergies No Known Allergies Results Component Value Reference Range Notes Glucose (In-House) Reviewed date:02/09/2024 12:20:35 PM Interpretation: Performing Lab: Notes/Report: blood glucose 74 74 - 106 mg/dL Glycohemoglobin A1c (in hous e) Reviewed date:02/09/2024 12:20:43 PM Interpretation: Performing Lab: Notes/Report: glycohemoglobin 7.5% 5 - 6.5 % P-Comprehensive Metabolic Pa jesus alberto (CMP) Reviewed date:02/10/2024 08:36:15 AM Interpretation:gluc 54, bun 24 Performing Lab: Notes/Report: Test performed by [facility] [facility] , [address], [place] [address] Kaiser Hairston MD, Infantry Assaultman CLIA: [id number] Sodium 144 135-145 mmol/L Potassium 4.4 3.5-5.3 [...] 37 Performing Lab: Notes/Report: Test performed by [facility], [address] , [address], [place] [address] Kaiser Hariston MD, Infantry Assaultman CLIA: [id number] Cholesterol 110 <200 mg/dL Triglycerides 62 <150 [...] Results: 61 Units: mg/dL % Change: +32% CBC Fingerstick (in house) ( Not yet reviewed by provider) Interpretation: Performing Lab: Notes/Report: wbc 8.6 3.5 - 10 lym 15.6% 15 - 50 mid 4.8% 2 - 15 gran 79.6% 35 - 80 rbc 5.15 3.5 - 5.5 hgb 15.5 11.5 - 16.5 hct 45.7 35 - 55 mcv 88.7 75 - 100 mch 30.0 25 - 35 mchc 33.8 31 - 38 plat 124 100 - 400 P-Comprehensive Metabolic Pa jesus alberto (CMP) Reviewed date:08/10/2024 08:47:18 AM Interpretation:gluc 57 Performing Lab: Notes/Report: Test performed by [facility] [address] [place] [address] , [address], [place] [address] Kaiser Hairston MD, Infantry Assaultman CLIA: [id number] Sodium 144 135-145 mmol/L Potassium 4.2 3.5-5.3 [...] Interpretation:9.4 Performing Lab: Notes/Report: Test performed by [facility] [address] [place] [address] [address], [place] [address] Kaiser Hairston MD, Infantry Ass[employer]man CLIA: [id number] Hemoglobin A1C 9.4 <5.7 % The following HbA1c ranges recommended by the [place] [employer] (ADA) may be used as an aid in the diagnosis of diabetes mellitus. HbA1c Suggested Diagnosis >=6.5% Diabetic 5.7% - 6.4% Pre-Diabetic <5.7% Non-Diabetic P-Lipid Panel Reviewed date:08/10/2024 08:47:18 AM Interpretation:hdl 33 Performing Lab: Notes/Report: Test performed by [facility] [address] [place], [place] [address] [address], [place] [address] Kaiser Hairston MD, Infantry Assaultman CLIA: [id number] Cholesterol 108 <200 mg/dL Triglycerides 66 <150 [...] Normal Performing Lab: Notes/Report: Test performed by [facility] [address] [place], [place] [address] [address] , [address], [place] [address] Kaiser Hairston MD, Infantry Assaultman CLIA: [id number] TSH reflex to FT4 3.72 0.43-5.25 mU/L P-Microalbumin/Creatinine, R andom Urine Sample Reviewed date:08/10/2024 08:47:18 AM Interpretation: Normal Performing Lab: Notes/Report: Test performed by [facility] [address] [place] [address] , [address], [place] [address] Kaiser Hairston MD, Infantry Assaultman CLIA: [id number] Albumin/Creatinine Ratio, Urine 58 0-30 ug/m g Microalbumin, Urine, Random 4.9 Creatinine, Urine 84.7 Estimated Average Glucose Reviewed date:08/10/2024 08:47:18 AM Interpretation: Normal Performing Lab: Notes/Report: Test performed by [facility], [address] , [address], [place] [address] Kaiser Hairston MD, Infantry Assaultman CLIA: [id number] Estimated Average Glucose (eAG) 223 Estimated Average Glucose (eAG) is calculated using the equation eAG = (28.7 x HbA1c) - 46.7 based on the guidelines established by the ADA. If the patient has certain diseases including kidney disease, sickle cell anemia, thalassemia, or is taking medications such as dapsone, erythropoietin, or iron, eAG should not be evaluated. Reason For Referral No Information Medications Medication SIG (Take, Route, Frequency, Duration) Notes Start Date End Date Status [place]-3 1000 MG 1 cap(s) orally once a day; Duration: 30 day(s) Active glipiZIDE 5 MG 1 tablet 30 minutes before breakfast Orally Once a day; Duration: 90 days Active Insulin Degludec 200 UNIT/ML 42 units Subcutaneous once daily 08/20/2023 Active amLODIPine Besylate 2.5 MG 1 tablet Orally Once a day; Duration: 90 days Active Atorvastatin Calcium 80 MG 1 tab(s) orally once a day; Duration: 90 days Active Aspirin 81 MG 1 tablet Orally Once a day; Duration: 30 day(s) Active Basaglar KwikPen 100 UNIT/ML INJECT 42 UNITS SUBCUTANEOUSLY EVERY DAY; Duration: 35 Active Telmisartan 80 MG 1 tablet Orally Once a day; Duration: 90 days Active metFORMIN HCl ER 500 MG take 2 tablets b y mouth once daily; Duration: 90 days Active Dexcom G6 Transmitter - as directed E11.08/14/2024 Active Pioglitazone HCl 15 MG Take 1 tablet by mouth once daily; Duration: 90 Active Promethazine-DM 6.25-15 MG/5ML 5 mL as needed Orally every 6 hrs 01/12/2025 Active Benzonatate 200 MG 1 capsule as needed Orally Three times a day 01/12/2025 Active Zithromax Z-Keagan 250 MG as directed Orall y daily; Duration: 5 days 01/12/2025 Active Colestipol HCl 1 GM 1 tablet Orally Once a day; Duration: 30 days 08/09/2024 Active Metoprolol Succinate ER 100 MG Take 1 tablet by mouth once daily; Duration: 90 Active Dexcom G6 Sensor - as directed every 10 days; Duration: 90 days E11.9 08/14/2024 Active Dexcom G6 Captain Cannery Tender - as directed E11.9 Active Immunizations Vaccine Route Administration Date Status Comme nts COVID 19 Moderna Unknown 06/13/2020 Administered COVID 19 Moderna Unknown 07/11/2020 Administered COVID 19 Moderna Unknown 02/12/2021 Administered Fluzone High Dose (65yr and older) IM Intramuscular 02/09/2022 Administered Fluzone High Dose (65yr and older) IM Intramuscular 02/08/2023 Administered Fluzone High Dose (65yr and older) IM Intramuscular 02/09/2024 Administered Hepatitis A (adult) Unknown 02/02/2019 Administered PNEUMOVAX 23 VACCINE Unknown 04/24/1999 Administered PNEUMOVAX 23 VACCINE IM Intramuscular 02/09/2024 Administe red Prevnar (PCV20) IM Intramuscular 02/09/2022 Administered xFluzone High Dose-private (65yr&older) Unknown 01/06/2021 Administered Problems Problem Type SNOMED Code ICD Code Onset Dates Problem Status W/U Status Risk Notes Problem Type II diabetes mellitus without complication (094727404) Type 2 diabetes mellitus without complications (E11.9) Active confirmed Problem Mixed hyperlipidemia (409185056) Mixed hyperlipidemia (E78.2) Active confirmed Problem Long-term current use of insulin (523832428) FDC (current) use of insulin (Z79.4) Active confirmed Problem Primary hypertension (53461281) Primary hypertension (I10) Active confirmed Vital Signs Heart Rate 67 /min 01/12/2025 Blood pressure diastolic 84 mm Hg 01/12/2025 Height 68 in 01/12/2025 Blood pressure systolic 146 mm Hg 01/12/2025 Weight 183.8 lbs 01/12/2025 BMI 27.94 kg/m2 01/12/2025 Encounters Encounter Location Date Provider Diagnosis [facility] [address] [place], [place] [id number] 02/09/2024 Tobi [place] Type 2 diabetes yoshi itus without complications E11.9 ; Primary hypertension I10 ; Mixed hyperlipidemia E78.2 and Encounter for immunization Z23 [facility] [address] [place], [place] [id number] 08/09/2024 Tobi [place] Type 2 diabetes yoshi itus without complications E11.9 ; Mixed hyperlipidemia E78.2 ; Primary hypertension I10 ; Chronic diarrhea K52.9 and BMI 27.0-27.9,adult Z68.27 [facility] [address] [place], [place] [id number] 01/12/2025 Tobi [place] Acute cough R05.1 an d Low back pain, unspecified M54.50 [facility] [address] [place], [place] [id number] 02/10/2024 Tobi [place] [facility] [address] [place], [place] [id number] 04/04/2024 Tobi [place] Type 2 diabetes yoshi itus without complications E11.9 [facility] [address] [place], [place] [id number] 07/07/2024 Tobi [place] [facility] [address] [place], [place] [id number] 08/10/2024 Tobi [place] [facility] [address] [place], [place] [id number] 08/14/2024 Tobi [place] [facility] [address] [place], [place] [id number] 09/04/2024 Tobi [place] Primary hypertension I10 [facility] [address] [place], [place] [id number] 10/24/2024 Tobi [place] [facility] [address] [place], [place] [id number] 12/01/2024 Tobi [place] Assessments Encounter Date Diagnosis (ICD Code) Assessment Notes Treatment Notes Treatment Clinical Notes Section Notes 02/09/2024 Type 2 diabetes mellitus without complications (ICD-10 - E11.9) 02/09/2024 Primary hypertension (ICD-10 - I10) 04/04/2024 Type 2 diabetes mellitus without complications (ICD-10 - E11.9) 08/09/2024 Type 2 diabetes mellitus without complications (ICD-10 - E11.9) 08/09/2024 Mixed hyperlipidemia (ICD-10 - E78.2) 09/04/2024 Primary hypertension (ICD-10 - I10) 01/12/2025 Low back pain, unspecified (ICD-10 - M54.50) 01/12/2025 Acute cough (ICD-10 - R05.1) 08/09/2024 Primary hypertension (ICD-10 - I10) 02/09/2024 Mixed hyperlipidemia (ICD-10 - E78.2) 02/09/2024 Encounter for immunization (ICD-10 - Z23) 08/09/2024 Chronic diarrhea (ICD-10 - K52.9) 08/09/2024 BMI 27.0-27.9,adult (ICD-10 - Z68.27) Plan Of Treatment Pending Test Test Name Order Date X ray : Spine, lumbosacral 01/12/2025 CBC Fingerstick (in house) 01/12/2025 Next Appt Details Provider Name:Tobi mccracken, 01/12/2025 10:45:00 AM, [address], [address], [place], [place], [id number], Provider Name:Tobi mccracken, 02/09/2025 10:00:00 AM, [address], [address], [place], [place], [id number], Insurance Providers Payer Name Payer Address Payer Phone Subscriber Number Group Number Insured Name Patient Relationship to Insured Coverage Start Date Coverage End Date MEDICARE PART B [address] [address] [place] [id number] Hayden Luna Self - patient is the insured [facility] [address] [place] [address] [id number] Hayden Luna Self - patient is the insured Medical (General) History Medical History History ICD Code Hypertension Hyperlipidemia Sinus/Allergy Arthritis Prostate Problems type 2 diabetes Surgical History Surgery Date(Month/Year) Prostatectomy
--- NOTE | 2025-01-12 11:45 | XR_ITS ---
FINAL REPORT CLINICAL HISTORY: Right-sided low back pain COMPARISON: None FINDINGS: Five views of the lumbar spine were obtained. There is no acute fracture. There is no malalignment. The vertebrae are normal in height. The disc spaces are preserved. There is moderate anterior osteophyte formation throughout the lumbar spine. There is moderate facet sclerosis. IMPRESSION: Moderate hypertrophic changes of degenerative disc disease. Reviewed, Interpreted and Dictated by Mati Carrera MD Transcribed by Chely Pickett Authenticated and [facility]
== END 2025-01-12 23:59 | disposition home or self-care (01) ==
PROVIDERS: PCP Family Medicine; Visit Provider Family Medicine
DX: M47.816 Spondylosis without myelopathy or radiculopathy, lumbar region (principal)
CPT/HCPCS: 72110

== ENCOUNTER 2025-02-20 15:09 | Outpatient (CLI) | payer MEDICARE, BC, SELFPAY ==
--- OUTSIDE RECORDS SUMMARY | 2023-08-23 06:30 | XMS_ITS ---
Author Organization [facility] Address [address] [facility] [address] [place] [id number] Care Team Providers Care Envelope Maker Name Role Phone Tobi Valiente Unavailable [phone] Results Component Value Reference Range Notes Glucose (In-House) Reviewed date:09/06/2023 10:55:20 AM Interpretation:242 Performing Lab: Notes/Report: 242 blood glucose 242 74 - 106 mg/dL REASON FOR VISIT test blood sugar Medications Medication SIG (Take, Route, Frequency, Duration) Notes Start Date End Date Status Cyclobenzaprine HCl 5 MG 1 tablet at bed time as needed Orally Two times a day 06/22/2023 Not-Taking Insulin Degludec 200 UNIT/ML 42 units Subcutaneous once daily 08/20/2023 Active traMADol HCl 50 MG 1 tab(s) Orally q6h prn 06/22/2023 Not-Taking Gray-3 1000 MG 1 cap(s) orally once a day; Duration: 30 day(s) Active Aspirin 81 MG 1 tablet Orally Once a day; Duration: 30 day(s) Active Pioglitazone HCl 15 MG 1 tablet Orally O nce a day; Duration: 90 days 08/11/2023 Active Telmisartan 80 MG take 1 tablet by ching th once daily Orally; Duration: 90 days Active Metoprolol Succinate ER 100 MG take 1 tablet by mouth once daily Orally; Duration: 90 days Active glipiZIDE 5 MG take 1 tablet by ching th once daily; Duration: 90 days Active metFORMIN HCl ER 500 MG take 2 tablets b y mouth once daily; Duration: 90 days Active Atorvastatin Calcium 80 MG 1 tab(s) oral ly once a day; Duration: 90 days Active amLODIPine Besylate 2.5 MG Take 1 tablet by mouth once daily; Duration: 90 Active Encounters Encounter Location Date Provider Diagnosis [facility] [address] [place] [id number] 08/23/2023 Tobi Valiente Plan Of Treatment Next Appt Details Provider Name:Tobi Bland ry, 08/10/2025 10:00:00 AM, [address], [address], [place], [id number], Progress Notes * GISELAHaydenDOB:1940 (84 yo M)Acc No.[id number]:08/23/2023 Patient: Kika TATEas Provider: Ramirez Valiente M.D. :1940 A ge:82 Y S ex:Male Date:08/23/2023 Address:[address] [place] [address] Subjective: * Chief Complaints: * 1 . Test blood sugar. * Medical History: * Medications: T aking Aspirin 81 MG Tablet Delayed Release 1 tablet Orally Once a day , Taking Gray-3 1000 MG Capsule 1 cap(s) orally once a day , Taking Atorvastatin Calcium 80 MG Tablet 1 tab(s) orally once a day , Taking amLODIPine Besylate 2.5 MG Tablet Take 1 tablet by mouth once daily , Taking metFORMIN HCl ER 500 MG Tablet Extended Release 24 Hour take 2 tablets by mouth once daily , Taking glipiZIDE 5 MG Tablet take 1 tablet by mouth once daily , Taking Metoprolol Succinate ER 100 MG Tablet Extended Release 24 Hour take 1 tablet by mouth once daily Orally , Taking Telmisartan 80 MG Tablet take 1 tablet by mouth once daily Orally , Taking Pioglitazone HCl 15 MG Tablet 1 tablet Orally Once a day , Taking Insulin Degludec 200 UNIT/ML Solution Pen-injector 42 units Subcutaneous once daily , Not-Taking Cyclobenzaprine HCl 5 MG Tablet 1 tablet at bedtime as needed Orally Two times a day , Not-Taking traMADol HCl 50 MG Tablet 1 tab(s) Orally q6h prn , Medication List reviewed and reconciled with the patient Objective: * Vitals: Assessment: Plan: * Treatment: Value Reference Range b lood glucose 242 74 - 106 mg/dL * Labs: * L ab: Glucose (In-House) (Collection Date & Time - 08/23/2023) 2 42 Value Reference Range b lood glucose 242 74 - 106 mg/dL * Georgette Garsia 08/23/2023 11 :48:49 AM >Radha Huerta 09/06/2023 10:54:58 AM > patient was without insulin at the time. Per JN- Dr. Valiente reviewed results. * Procedure Codes: 3 6416 CAPILLARY BLOOD DRAW, 74961 GLUCOSE TEST * Images: Billing Information: * Visit Code: * Procedure Codes: 53369 CAPILLARY BLOOD DRAW. 37426 GLUCOSE TEST. * Electronic signature of Nicol Valiente MD on 02/20/2025 at 03:19 PM EST Sign off status: Pending * Provider: Ramirez Valiente M.D. Date: 0 08/23/2023 Generated for Cheri orellana/Julia/Essenceitting on: 1 04/22/2024 03:19 PM EST
--- OUTSIDE RECORDS SUMMARY | 2024-02-09 04:45 | XMS_ITS ---
[facility] Organization [facility] Address [address] [place], [place] [id number] Care Team Providers Care Slurry Worker Name Role Phone Tobi Valiente Unavailable [phone] Allergies No Known Allergies Results Component Value Reference Range Notes Glucose (In-House) Reviewed date:02/09/2024 12:20:35 PM Interpretation: Performing Lab: Notes/Report: blood glucose 74 74 - 106 mg/dL Glycohemoglobin A1c (in hous e) Reviewed date:02/09/2024 12:20:43 PM Interpretation: Performing Lab: Notes/Report: glycohemoglobin 7.5% 5 - 6.5 % P-Comprehensive Metabolic Pa jesus alberto (CMP) Reviewed date:02/10/2024 08:36:15 AM Interpretation:gluc 54, bun 24 Performing Lab: Notes/Report: CLIA: [id number] Kaiser Hairston MD, Handy Man [facility] , [address], [place] [address] Test performed by [employer] Sodium 144 135-145 mmol/L Potassium 4.4 3.5-5.3 mmol/L Chloride 105 97-108 mmol/L CO2 28 22-32 mmol/L Glucose 54 65-99 mg/dL BUN 24 8-23 mg/dL Creatinine 0.90 0.70-1.30 mg/dL Calcium 9.7 8.6-10.4 mg/dL eGFR by Creatinine 85 >59 mL/min/1.73m2 Protein 7.0 6.0-8.3 g/dL Albumin 4.6 3.5-5.3 g/dL Alkaline Phosphatase 89 40-129 IU/L ALT (SGPT) 26 <5-55 IU/L AST (SGOT) 25 <5-46 IU/L Bilirubin, Total 0.7 <0.2-1.2 mg/dL A/G Ratio 1.9 1.1-2.5 P-Lipid Panel Reviewed date:02/10/2024 08:36:15 AM Interpretation:hdl 37 Performing Lab: Notes/Report: Test performed by [facility], [address] , [address], [place] [address] Kaiser Hairston MD, Handy Man CLIA: [id number] Cholesterol 110 <200 mg/dL Triglycerides 62 <150 mg/dL HDL Cholesterol 37 >39 mg/dL Cholesterol / HDL Ratio 2.97 0.00-4.99 Ratio Non-HDL Cholesterol 73 <130 mg/dL LDL Cholesterol (Calculation) 61 <130 mg/dL LDL Cholesterol Levels* Less than 100 mg/dL Optimal 100 to 129 mg/dL Near Optimal/ Above Optimal 130 to 159 mg/dL Borderline High 160 to 189 mg/dL High 190 mg/dL and above Very High * Categories as recommended by the 2004 ATPIII guidelines LDL/HDL Ratio 1.6 <3.3 Ratio LDL Cholesterol Patient History Test Date: 08/10/2023 LDL Results: 46 Units: mg/dL % Change: - Test Date: 02/09/2024 LDL Results: 61 Units: mg/dL % Change: +32% REASON FOR VISIT 6 month check Medications Medication SIG (Take, Route, Frequency, Duration) Notes Start Date End Date Status Metoprolol Succinate ER 100 MG take 1 tablet by mouth once daily Orally; Duration: 90 days Active Telmisartan 80 MG take 1 tablet by ching th once daily Orally; Duration: 90 days Active Scottdale-3 1000 MG 1 cap(s) orally once a day; Duration: 30 day(s) Active Aspirin 81 MG 1 tablet Orally Once a day; Duration: 30 day(s) Active Pioglitazone HCl 15 MG 1 tablet Orally O nce a day; Duration: 90 days 08/11/2023 Active glipiZIDE 5 MG take 1 tablet by ching th once daily; Duration: 90 days Active Tresiba FlexTouch 200 UNIT/ML INJECT 42 UNITS SUBCUTANEOUSLY ONCE DAILY; Duration: 29 Active amLODIPine Besylate 2.5 MG Take 1 tablet by mouth once daily; Duration: 90 days Active metFORMIN HCl ER 500 MG take 2 tablets b y mouth once daily; Duration: 90 days Active Atorvastatin Calcium 80 MG 1 tab(s) orally once a day; Duration: 90 days Active Insulin Degludec 200 UNIT/ML 42 units Subcutaneous once daily 08/20/2023 Active Immunizations Vaccine Route Administration Date Status Comme nts Fluzone High Dose (65yr and older) IM Intramuscular 02/09/2024 Administered PNEUMOVAX 23 VACCINE IM Intramuscular 02/09/2024 Administe red Vital Signs Blood pressure systolic 140 mm Hg 02/09/20 24 Blood pressure diastolic 74 mm Hg 024 Heart Rate 58 /min 02/09/2024 Weight 177 lbs 02/09/2024 Encounters Encounter Location Date Provider Diagnosis [facility] [address] [place]ER Bhatti [id number] 02/09/2024 Tobi Valiente Type 2 diabetes yoshi itus without complications E11.9 ; Primary hypertension I10 ; Mixed hyperlipidemia E78.2 and Encounter for immunization Z23 Assessments Encounter Date Diagnosis (ICD Code) Assessment Notes Treatment Notes Treatment Clinical Notes Section Notes 02/09/2024 Type 2 diabetes mellitus without complications (ICD-10 - E11.9) 02/09/2024 Primary hypertension (ICD-10 - I10) 02/09/2024 Mixed hyperlipidemia (ICD-10 - E78.2) 02/09/2024 Encounter for immunization (ICD-10 - Z23) Plan Of Treatment Medication Medication Name Sig Start Date Stop Date Notes Metoprolol Succinate ER 100 MG take 1 ta blet by mouth once daily Orally; Duration: 90 days Telmisartan 80 MG take 1 tablet by ching th once daily Orally; Duration: 90 days Pioglitazone HCl 15 MG 1 tablet Orally O nce a day; Duration: 90 days 08/11/2023 glipiZIDE 5 MG take 1 tablet by ching th once daily; Duration: 90 days Next Appt Details Follow Up: 6 Months, Reason: Provider Name:Tobi Bland , 08/10/2025 10:00:00 AM, [address] [facility], [address] [place] [address], [id number], Progress Notes * Hayden HIGGINSDOB:1940 (84 yo M)Acc No.[id number]:02/09/2024 Progress Notes Patient: Hayden TATE Provider: Ramirez Valiente M.D. :1940 A ge:83 Y S ex:Male Date:02/09/2024 Address:[address] [place] [address] Subjective: * Chief Complaints: * 1 . 6 month check. * HPI: C ardiology: 83 year old male presents with c/o Blood Pressure Elevated P t here for 6 mo f/u on hypertension, states he is doing well and does not have any concerns. c/o Hyperlipidemia P t is fasting today. E ndocrinology: c/o Recent Blood Sugars P t here to f/u on DM 2, pt states that he does check blood sugar at home and it has been normal. * ROS: D ERMATOLOGY: no R abdelrahman. [...] tablet Orally Once a day , Taking Scottdale-3 1000 MG Capsule 1 cap(s) orally once a day , Taking metFORMIN HCl ER 500 MG [...] Pen-injector 42 units Subcutaneous once daily , Taking Atorvastatin Calcium 80 MG Tablet 1 tab(s) orally once a day , Taking Tresiba FlexTouch 200 UNIT/ML Solution Pen-injector INJECT 42 UNITS SUBCUTANEOUSLY ONCE DAILY , Taking amLODIPine Besylate 2.5 MG Tablet Take 1 tablet by mouth once daily , Discontinued Cyclobenzaprine HCl 5 MG Tablet 1 tablet at bedtime as needed Orally Two times a day , Discontinued traMADol HCl 50 MG Tablet 1 tab(s) Orally q6h prn , Medication List reviewed and reconciled with the patient * Allergies: N .K.D.A. Objective: * Vitals: W t:177, Temp:97.8, BP:140/74, HR:58, Nurse:monroe. * Examination: E ndocrinology: General Appearance: N AD. H eart: R SR. L ungs:?clear to auscultation. E xtremities: n o leg edema. Assessment: * Assessment: 1. T ype 2 diabetes mellitus without complications - E11.9 (Primary) 2 . P rimary hypertension - I10 3 . M ixed hyperlipidemia - E78.2 4 .?Encounter for immunization - Z23 Plan: * Treatment: Value Reference Range A /G Ratio 1.9 1.1-2.5 - * A lbumin 4.6 3.5-5.3 - g/dL * A lkaline Phosphatase 89 40-129 - IU/L * A LT (SGPT) 26 <5-55 - IU/L * A ST (SGOT) 25 <5-46 - IU/L * B ilirubin, Total 0.7 <0.2-1.2 - mg/dL * B UN 24 H 8-23 - mg/dL * C alcium 9.7 8.6-10.4 - mg/dL * C hloride 105 97-108 - mmol/L * C O2 28 22-32 - mmol/L * C reatinine 0.90 0.70-1.30 - mg/dL * G lucose 54 L 65-99 - mg/dL * P otassium 4.4 3.5-5.3 - mmol/L * S odium 144 135-145 - mmol/L * P rotein 7.0 6.0-8.3 - g/dL * e GFR by Creatinine 85 >59 - mL/min/1.73m2 * Radha Huerta 02/10/2024 8:36 :07 AM >See phone encounter ?LAB: Glucose (In-House) (Collection Date & Time - 02/09/2024)* Value Reference Range b lood glucose 74 74 - 106 mg/dL * Mary Ellen Franco 02/09/2024 11:20: 30 AM > , Provider reviewed results while patient in office. ?LAB: Glycohemoglobin A1c (in house) (Collection Date & Time - 02/09/2024)* Value Reference Range g lycohemoglobin 7.5% 5 - 6.5 % * Mary Ellen Franco 02/09/2024 11:23: 47 AM > , Provider reviewed results while patient in office. 2.?Primary hypertension? Refill Telmisartan Tablet, 80 MG, take 1 tablet by mouth once daily, Orally, 90 days, 90, Refills 1;?Refill Metoprolol Succinate ER Tablet Extended Release 24 Hour, 100 MG, take 1 tablet by mouth once daily, Orally, 90 days, 90, Refills 1.?LAB: P-Comprehensive Metabolic Panel (CMP) (Collection Date & Time - 02/09/2024 10:01 AM)?gluc 54, bun 24* Value Reference Range A /G Ratio 1.9 1.1-2.5 - * A lbumin 4.6 3.5-5.3 - g/dL * A lkaline Phosphatase 89 40-129 - IU/L * A LT (SGPT) 26 <5-55 - IU/L * A ST (SGOT) 25 <5-46 - IU/L * B ilirubin, Total 0.7 <0.2-1.2 - mg/dL * B UN 24 H 8-23 - mg/dL * C alcium 9.7 8.6-10.4 - mg/dL * C hloride 105 97-108 - mmol/L * C O2 28 22-32 - mmol/L * C reatinine 0.90 0.70-1.30 - mg/dL * G lucose 54 L 65-99 - mg/dL * P otassium 4.4 3.5-5.3 - mmol/L * S odium 144 135-145 - mmol/L * P rotein 7.0 6.0-8.3 - g/dL * e GFR by Creatinine 85 >59 - mL/min/1.73m2 * Luther Huertaia 02/10/2024 8:36 :07 AM >See phone encounter 3.?Mixed hyperlipidemia?LAB: P-Comprehensive Metabolic Panel (CMP) (Collection Date & Time - 02/09/2024 10:01 AM)?gluc 54, bun 24* Value Reference Range A /G Ratio 1.9 1.1-2.5 - * A lbumin 4.6 3.5-5.3 - g/dL * A lkaline Phosphatase 89 40-129 - IU/L * A LT (SGPT) 26 <5-55 - IU/L * A ST (SGOT) 25 <5-46 - IU/L * B ilirubin, Total 0.7 <0.2-1.2 - mg/dL * B UN 24 H 8-23 - mg/dL * C alcium 9.7 8.6-10.4 - mg/dL * C hloride 105 97-108 - mmol/L * C O2 28 22-32 - mmol/L * C reatinine 0.90 0.70-1.30 - mg/dL * G lucose 54 L 65-99 - mg/dL * P otassium 4.4 3.5-5.3 - mmol/L * S odium 144 135-145 - mmol/L * P rotein 7.0 6.0-8.3 - g/dL * e GFR by Creatinine 85 >59 - mL/min/1.73m2 * Luther Huertaia 02/10/2024 8:36 :07 AM >See phone encounter ?LAB: P-Lipid Panel (Collection Date & Time - 02/09/2024 10:01 AM)?hdl 37* Value Reference Range C holesterol / HDL Ratio 2.97 0.00-4.99 - Ratio * C holesterol 110 <200 - mg/dL * H DL Cholesterol 37 L >39 - mg/dL * L DL Cholesterol (Calculation) 61 <130 - mg/d L * L DL/HDL Ratio 1.6 <3.3 - Ratio * N on-HDL Cholesterol 73 <130 - mg/dL * T riglycerides 62 <150 - mg/dL * DeannaLutherRadha 02/10/2024 8:36 :07 AM >See phone encounter * Immunizations: Fluzone High Dose (65yr and older) : 0.5 mL (Route: Intramuscular) given by Mary Ellen Franco on Left Deltoid (Encounter for immunization) PNEUMOVAX 23 VACCINE : 0.5 mL (Route: Intramuscular) given by Mary Ellen Salvador on Left Deltoid (Encounter for immunization) * Procedure Codes: 8 2950 GLUCOSE TEST, 58678 GLYCATED HEMOGLOBIN TEST, Modifiers: QW * Follow Up: 6 Months * Images: Billing Information: * Visit Code: 34301 Office Visit, Est Pt., Level 4. * Procedure Codes: 69300 GLUCOSE TEST. 27005 GLYCATED HEMOGLOBIN TEST. Modifiers: QW * Electronic signature of Nicol Valiente MD on 02/20/2025 at 03:19 PM EST Sign off status: Pending * Provider: Josef Fuller: Generated for Cheri orellana/Julia/eTransmitting on: 04/22/2024 03:19 PM EST History and Physical Notes * HPI (History of Present Illness) Category Sub-Category Detail Notes Category Not es Endocrinology Recent Blood Sugars Pt here to f /u on DM 2, pt states that he does check blood sugar at home and it has been normal Cardiology Blood Pressure Elevated Pt here for 6 mo f/u on hypertension, states he is doing well and does not have any concerns Hyperlipidemia Pt is fasting today Examination Category Sub-Category Detail Notes Category Not es Endocrinology Heart: RSR Lungs: clear to auscultatio n Extremities: no leg edema General Appearance: NAD
--- OUTSIDE RECORDS SUMMARY | 2024-08-09 04:15 | XMS_ITS ---
Author Organization [facility] Address [address] [facility] [address] [place], [place] [id number] Care Team Providers Care Planning Rn Name Role Phone Tobi Valiente Unavailable [phone] Allergies No Known Allergies Results Component Value Reference Range Notes P-Comprehensive Metabolic Pa jesus alberto (CMP) Reviewed date:08/10/2024 08:47:18 AM Interpretation:gluc 57 Performing Lab: Notes/Report: Test performed by [facility] [address] [place] [address] , [address], [place] [address] Kaiser Hairston MD, Senior Planning Manager CLIA: [id number] Sodium 144 135-145 mmol/L Potassium 4.2 3.5-5.3 mmol/L Chloride 105 97-108 mmol/L CO2 28 22-32 mmol/L Glucose 57 65-99 mg/dL BUN 16 8-23 mg/dL Creatinine 0.88 0.70-1.30 mg/dL Calcium 9.3 8.6-10.4 mg/dL eGFR by Creatinine 86 >59 mL/min/1.73m2 Protein 6.3 6.0-8.3 g/dL Albumin 4.0 3.5-5.3 g/dL Alkaline Phosphatase 88 40-129 IU/L ALT (SGPT) 27 <5-55 IU/L AST (SGOT) 22 <5-46 IU/L Bilirubin, Total 0.6 <0.2-1.2 mg/dL A/G Ratio 1.7 1.1-2.5 P-Hemoglobin A1C Reviewed date:08/10/2024 08:47:18 AM Interpretation:9.4 Performing Lab: Notes/Report: Test performed by [facility] [address] [place], [place] [address] [place] [address], [place] [address] Kaiser Hairston MD, Senior Planning Manager CLIA: [id number] Hemoglobin A1C 9.4 <5.7 % The following HbA1c ranges recommended by the [place] Diabetes [employer] (ADA) may be used as an aid in the diagnosis of diabetes mellitus. HbA1c Suggested Diagnosis >=6.5% Diabetic 5.7% - 6.4% Pre-Diabetic <5.7% Non-Diabetic P-Lipid Panel Reviewed date:08/10/2024 08:47:18 AM Interpretation:hdl 33 Performing Lab: Notes/Report: Test performed by [facility] [employer] [address] [place], [place] [address] [place] [address], [place] [address] Kaiser Hairston MD, Senior Planning Manager CLIA: [id number] Cholesterol 108 <200 mg/dL Triglycerides 66 <150 mg/dL HDL Cholesterol 33 >39 mg/dL Cholesterol / HDL Ratio 3.27 0.00-4.99 Ratio Non-HDL Cholesterol 75 <130 mg/dL LDL Cholesterol (Calculation) 62 <130 mg/dL LDL Cholesterol Levels* Less than 100 mg/dL Optimal 100 to 129 mg/dL Near Optimal/ Above Optimal 130 to 159 mg/dL Borderline High 160 to 189 mg/dL High 190 mg/dL and above Very High * Categories as recommended by the 2004 ATPIII guidelines LDL/HDL Ratio 1.9 <3.3 Ratio LDL Cholesterol Patient History Test Date: 08/10/2023 LDL Results: 46 Units: mg/dL % Change: - Test Date: 02/09/2024 LDL Results: 61 Units: mg/dL % Change: +32% Test Date: 08/09/2024 LDL Results: 62 Units: mg/dL % Change: +1% P-TSH reflex to FT4 Reviewed date:08/10/2024 08:47:18 AM Interpretation: Normal Performing Lab: Notes/Report: Test performed by [facility] [employer] [address] [place] [address] , [place] [address] Kaiser Hairston MD, Senior Planning Manager CLIA: [id number] TSH reflex to FT4 3.72 0.43-5.25 mU/L P-Microalbumin/Creatinine, R andom Urine Sample Reviewed date:08/10/2024 08:47:18 AM Interpretation: Normal Performing Lab: Notes/Report: Test performed by [facility] [employer] [address] [place] [address] , [place] [address] Kaiser Hairston MD, Senior Planning Manager CLIA: [id number] Albumin/Creatinine Ratio, Urine 58 0-30 ug/m g Microalbumin, Urine, Random 4.9 Creatinine, Urine 84.7 Estimated Average Glucose Reviewed date:08/10/2024 08:47:18 AM Interpretation: Normal Performing Lab: Notes/Report: Test performed by [facility] [employer] [address] [place] [address] , [address], [place] [address] Kaiser Hairston MD, Senior Planning Manager IA: [id number] Estimated Average Glucose (eAG) 223 Estimated Average Glucose (eAG) is calculated using the equation eAG = (28.7 x HbA1c) - 46.7 based on the guidelines established by the ADA. If the patient has certain diseases including kidney disease, sickle cell anemia, thalassemia, or is taking medications such as dapsone, erythropoietin, or iron, eAG should not be evaluated. REASON FOR VISIT 6 month f/u Medications Medication SIG (Take, Route, Frequency, Duration) Notes Start Date End Date Status Basaglar KwikPen 100 UNIT/ML inject 42 units Subcutaneous every day 07/10/2024 Active Atorvastatin Calcium 80 MG 1 tab(s) oral ly once a day; Duration: 90 days Active amLODIPine Besylate 2.5 MG Take 1 tablet by mouth once daily; Duration: 90 days Active metFORMIN HCl ER 500 MG take 2 tablets b y mouth once daily; Duration: 90 days Active Colestipol HCl 1 GM 1 tablet Orally Once a day; Duration: 30 days 08/09/2024 Active glipiZIDE 5 MG take 1 tablet by ching th once daily; Duration: 90 days Active Pioglitazone HCl 15 MG 1 tablet Orally O nce a day; Duration: 90 days 08/11/2023 Active Insulin Degludec 200 UNIT/ML 42 units Subcutaneous once daily 08/20/2023 Active Metoprolol Succinate ER 100 MG take 1 tablet by mouth once daily Orally; Duration: 90 days Active Telmisartan 80 MG take 1 tablet by ching th once daily Orally; Duration: 90 days Active [place]-3 1000 MG 1 cap(s) orally once a day; Duration: 30 day(s) Active Aspirin 81 MG 1 tablet Orally Once a day; Duration: 30 day(s) Active Vital Signs Blood pressure systolic 140 mm Hg 08/10/19 25 Blood pressure diastolic 84 mm Hg 025 Heart Rate 55 /min 08/09/2024 Height 68 in 08/09/2024 Weight 177.6 lbs 08/09/2024 BMI 27 kg/m2 08/09/2024 Encounters Encounter Location Date Provider Diagnosis [facility] [address] [facility] [address] [place] [address], [place] [id number] 08/09/2024 Tobi Valiente Type 2 diabetes yoshi itus without complications E11.9 ; Mixed hyperlipidemia E78.2 ; Primary hypertension I10 ; Chronic diarrhea K52.9 and BMI 27.0-27.9,adult Z68.27 Assessments Encounter Date Diagnosis (ICD Code) Assessment Notes Treatment Notes Treatment Clinical Notes Section Notes 08/09/2024 Type 2 diabetes mellitus without complications (ICD-10 - E11.9) 08/09/2024 Mixed hyperlipidemia (ICD-10 - E78.2) 08/09/2024 Primary hypertension (ICD-10 - I10) 08/09/2024 Chronic diarrhea (ICD-10 - K52.9) 08/09/2024 BMI 27.0-27.9,adult (ICD-10 - Z68.27) Plan Of Treatment Medication Medication Name Sig Start Date Stop Date Notes Colestipol HCl 1 GM 1 tablet Orally Once a day; Duration: 30 days 08/09/2024 Next Appt Details Follow Up: 6 Months, Reason: Provider Name:Tobi Bland , 08/10/2025 10:00:00 AM, [address], [address], [phone], Progress Notes * Hayden HIGGINSDOB:1940 (84 yo M)Acc No.[id number]:08/09/2024 Progress Notes Patient: Hayden TATE Provider: Ramirez Valiente M.D. :1940 A ge:83 Y S ex:Male Date:08/09/2024 Address:[address] [place] [address] Subjective: * Chief Complaints: * 1 . 6 month f/u. * HPI: C ardiology: 83 year old male presents with c/o Blood Pressure Elevated P t here for 6 mo f/u on hypertension, states he is doing well and does not have any concerns. c/o Hyperlipidemia P t is fasting today. E ndocrinology: c/o Recent Blood Sugars P t here to f/u on DM 2. Pt states he woke up in a sweat yesterday and his blood sugar was 67, pt felt better after eating. Pt states blood sugar was 112 this morning. * ROS: D ERMATOLOGY: no R abdelrahman. n o H phillip. G ASTROENTEROLOGY: no N ausea. n o V omiting. D iarrhea y es,?episodic, for several years. U ROLOGY: no D ifficulty urinating. n o B lood in urine. * Medical History: H ypertension, Hyperlipidemia, Diabetes, Sinus/Allergy, Arthritis, Prostate Problems. * Surgical History: P rostatectomy . * Family History: Diabetes-aunt and great aunt Cancer-sister. * Social History: C URRENT TOBACCO USE: No . C affeine: no. Marital Status: . Alcohol: no. * Medications: T aking Aspirin 81 MG Tablet Delayed Release 1 tablet Orally Once a day , Taking [place]-3 1000 MG Capsule 1 cap(s) orally once a day , Taking Insulin Degludec 200 UNIT/ML Solution Pen-injector 42 units Subcutaneous once daily , Taking glipiZIDE 5 MG Tablet take 1 tablet by mouth once daily , Taking Pioglitazone HCl 15 MG Tablet 1 tablet Orally Once a day , Taking Telmisartan 80 MG Tablet take 1 tablet by mouth once daily Orally , Taking Metoprolol Succinate ER 100 MG Tablet Extended Release 24 Hour take 1 tablet by mouth once daily Orally , Taking metFORMIN HCl ER 500 MG Tablet Extended Release 24 Hour take 2 tablets by mouth once daily , Taking Atorvastatin Calcium 80 MG Tablet 1 tab(s) orally once a day , Taking amLODIPine Besylate 2.5 MG Tablet Take 1 tablet by mouth once daily , Taking Basaglar KwikPen 100 UNIT/ML Solution Pen-injector inject 42 units Subcutaneous every day , Medication List reviewed and reconciled with the patient * Allergies: N .K.D.A. Objective: * Vitals: W t: 177.6, Temp: 97.9, BP: 140/84, HR: 55, Nurse: monroe, Ht: 68, BMI:27. * Examination: E ndocrinology: General Appearance: N AD. H eart: R SR. L ungs:?clear to auscultation. A bdomen: b owel sounds present , soft and nontender. E xtremities: n o leg edema. Assessment: * Assessment: 1. T ype 2 diabetes mellitus without complications - E11.9 2 . M ixed hyperlipidemia - E78.2 3 . P rimary hypertension - I10 4 . C hronic diarrhea - K52.9 5 . B [place] 27.0-27.9,adult - Z68.27 Plan: * Treatment: Value Reference Range A /G Ratio 1.7 1.1-2.5 - * A lbumin 4.0 3.5-5.3 - g/dL * A lkaline Phosphatase 88 40-129 - IU/L * A LT (SGPT) 27 <5-55 - IU/L * A ST (SGOT) 22 <5-46 - IU/L * B ilirubin, Total 0.6 <0.2-1.2 - mg/dL * B UN 16 8-23 - mg/dL * C alcium 9.3 8.6-10.4 - mg/dL * C hloride 105 97-108 - mmol/L * C O2 28 22-32 - mmol/L * C reatinine 0.88 0.70-1.30 - mg/dL * G lucose 57 L 65-99 - mg/dL * P otassium 4.2 3.5-5.3 - mmol/L * S odium 144 135-145 - mmol/L * P rotein 6.3 6.0-8.3 - g/dL * e GFR by Creatinine 86 >59 - mL/min/1.73m2 * Radha Huerta 08/10/2024 08:4 7:10 AM > See phone encounter ?LAB: P-Hemoglobin A1C (Collection Date & Time - 08/09/2024 09:21 AM)?9.4* Value Reference Range H emoglobin A1C 9.4 H <5.7 - % * Radha Huerta 08/10/2024 08:4 7:10 AM > See phone encounter ?LAB: P-TSH reflex to FT4 (Collection Date & Time - 08/09/2024 09:21 AM)? Normal* Value Reference Range T SH reflex to FT4 3.72 0.43-5.25 - mU/L * Radha Huerta 08/10/2024 08:4 7:10 AM > See phone encounter ?LAB: P-Microalbumin/Creatinine, Random Urine Sample (Collection Date & Time - 08/09/2024 09:21 AM)?Normal* Value Reference Range A lbumin/Creatinine Ratio, Urine 58 H 0-30 - ug /mg * C reatinine, Urine 84.7 - mg/dL * M icroalbumin, Urine, Random 4.9 - mg/dL * Radha Huerta 08/10/2024 08:4 7:10 AM > See phone encounter 2.?Mixed hyperlipidemia?LAB: P-Comprehensive Metabolic Panel (CMP) (Collection Date & Time - 08/09/2024 09:21 AM)?gluc 57* Value Reference Range A /G Ratio 1.7 1.1-2.5 - * A lbumin 4.0 3.5-5.3 - g/dL * A lkaline Phosphatase 88 40-129 - IU/L * A LT (SGPT) 27 <5-55 - IU/L * A ST (SGOT) 22 <5-46 - IU/L * B ilirubin, Total 0.6 <0.2-1.2 - mg/dL * B UN 16 8-23 - mg/dL * C alcium 9.3 8.6-10.4 - mg/dL * C hloride 105 97-108 - mmol/L * C O2 28 22-32 - mmol/L * C reatinine 0.88 0.70-1.30 - mg/dL * G lucose 57 L 65-99 - mg/dL * P otassium 4.2 3.5-5.3 - mmol/L * S odium 144 135-145 - mmol/L * P rotein 6.3 6.0-8.3 - g/dL * e GFR by Creatinine 86 >59 - mL/min/1.73m2 * Radha Huerta 08/10/2024 08:4 7:10 AM > See phone encounter ?LAB: P-Lipid Panel (Collection Date & Time - 08/09/2024 09:21 AM)?hdl 33* Value Reference Range C holesterol / HDL Ratio 3.27 0.00-4.99 - Ratio * C holesterol 108 <200 - mg/dL * H DL Cholesterol 33 L >39 - mg/dL * L DL Cholesterol (Calculation) 62 <130 - mg/d L * L DL/HDL Ratio 1.9 <3.3 - Ratio * N on-HDL Cholesterol 75 <130 - mg/dL * T riglycerides 66 <150 - mg/dL * Radha Huerta 08/10/2024 08:4 7:10 AM > See phone encounter 3.?Primary hypertension?LAB: P-Comprehensive Metabolic Panel (CMP) (Collection Date & Time - 08/09/2024 09:21 AM)?gluc 57* Value Reference Range A /G Ratio 1.7 1.1-2.5 - * A lbumin 4.0 3.5-5.3 - g/dL * A lkaline Phosphatase 88 40-129 - IU/L * A LT (SGPT) 27 <5-55 - IU/L * A ST (SGOT) 22 <5-46 - IU/L * B ilirubin, Total 0.6 <0.2-1.2 - mg/dL * B UN 16 8-23 - mg/dL * C alcium 9.3 8.6-10.4 - mg/dL * C hloride 105 97-108 - mmol/L * C O2 28 22-32 - mmol/L * C reatinine 0.88 0.70-1.30 - mg/dL * G lucose 57 L 65-99 - mg/dL * P otassium 4.2 3.5-5.3 - mmol/L * S odium 144 135-145 - mmol/L * P rotein 6.3 6.0-8.3 - g/dL * e GFR by Creatinine 86 >59 - mL/min/1.73m2 * Radha Huerta 08/10/2024 08:4 7:10 AM > See phone encounter 4.?Chronic diarrhea? Start Colestipol HCl Tablet, 1 GM, 1 tablet, Orally, Once a day, 30 days, 30, Refills 0.?? * Labs: * L ab: Estimated Average Glucose (Collection Date & Time - 08/09/2024 09:21 AM) N ormal Value Reference Range E stimated Average Glucose 223 - mg/dL * [facility], IT support 08/10/2024 06:20:03 : This order was created by the Interface. Radha Huerta 08/10/2024 08:47:10 AM > See phone encounter * Procedure Codes: G 2211 Complex e/m visit add on, G8753 MOST RECENT SYSTOLIC BP >= 140MM HG, G8754 MOST RECENT DIASTOLIC BP < 90MM HG, 3046F HEMOGLOBIN A1C LEVEL > 9.0%, G8420 BMI<30 AND >=22 CALC & DOCU * Follow Up: 6 Months * Images: Billing Information: * Visit Code: 47991 Office Visit, Est Pt., Level 4. * Procedure Codes: G2211 Complex e/m visit add on. G8753 MOST RECENT SYSTOLIC BP >= 140MM HG. G8754 MOST RECENT DIASTOLIC BP < 90MM HG. 3046F HEMOGLOBIN A1C LEVEL > 9.0%. G8420 BMI<30 AND >=22 CALC & DOCU. * Electronic signature of Nicol Valiente MD on 02/20/2025 at 03:20 PM EST Sign off status: Pending * Provider: Ramirez Valiente M.D. Date: 0 08/09/2024 Generated for Cheri orlelana/Julia/eTilanasmitting on: 1 04/22/2024 03:20 PM EST History and Physical Notes * HPI (History of Present Illness) Category Sub-Category Detail Notes Category Not es Endocrinology Recent Blood Sugars Pt here to f /u on DM 2. Pt states he woke up in a sweat yesterday and his blood sugar was 67, pt felt better after eating. Pt states blood sugar was 112 this morning Cardiology Blood Pressure Elevated Pt here for 6 mo f/u on hypertension, states he is doing well and does not have any concerns Hyperlipidemia Pt is fasting today Examination Category Sub-Category Detail Notes Category Not es Endocrinology Heart: RSR Lungs: clear to auscultatio n Abdomen: bowel sounds present , soft and nontender Extremities: no leg edema General Appearance: NAD
--- OUTSIDE RECORDS SUMMARY | 2025-01-12 05:45 | XMS_ITS ---
Author Organization [facility] Address [address] [facility] [address] [place] [id number] Care Team Providers Care Curbing Stonecutter Name Role Phone Tobi Valiente Unavailable [phone] Allergies No Known Allergies Results Component Value Reference Range Notes CBC Fingerstick (in house) Reviewed date:01/12/2025 12:35:58 PM Interpretation: Performing Lab: Notes/Report: wbc 8.6 3.5 - 10 lym 15.6% 15 - 50 mid 4.8% 2 - 15 gran 79.6% 35 - 80 rbc 5.15 3.5 - 5.5 hgb 15.5 11.5 - 16.5 hct 45.7 35 - 55 mcv 88.7 75 - 100 mch 30.0 25 - 35 mchc 33.8 31 - 38 plat 124 100 - 400 X ray : Spine, lumbosacral Reviewed date:01/17/2025 12:14:57 PM Interpretation:moderate changes of DDD Performing Lab: Notes/Report: moderate changes of DDD REASON FOR VISIT not feeling well, struggling to walk Medications Medication SIG (Take, Route, Frequency, Duration) Notes Start Date End Date Status amLODIPine Besylate 2.5 MG 1 tablet Orally Once a day; Duration: 90 days Active Promethazine-DM 6.25-15 MG/5ML 5 mL as needed Orally every 6 hrs 01/12/2025 Active Benzonatate 200 MG 1 capsule as needed Orally Three times a day 01/12/2025 Active Zithromax Z-Keagan 250 MG as directed Orall y daily; Duration: 5 days 01/12/2025 Active Metoprolol Succinate ER 100 MG Take 1 tablet by mouth once daily; Duration: 90 Active glipiZIDE 5 MG 1 tablet 30 minutes before breakfast Orally Once a day; Duration: 90 days Active Atorvastatin Calcium 80 MG 1 tab(s) orally once a day; Duration: 90 days Active Basaglar KwikPen 100 UNIT/ML INJECT 42 UNITS SUBCUTANEOUSLY EVERY DAY; Duration: 35 Active Telmisartan 80 MG 1 tablet Orally Once a day; Duration: 90 days Active metFORMIN HCl ER 500 MG take 2 tablets b y mouth once daily; Duration: 90 days Active Dexcom G6 Transmitter - as directed E11.9 08/14/2024 Active Pioglitazone HCl 15 MG Take 1 tablet by mouth once daily; Duration: 90 Active Dexcom G6 Freight Broker Agent - as directed E11.9 Active Colestipol HCl 1 GM 1 tablet Orally Once a day; Duration: 30 days 08/09/2024 Active Dexcom G6 Sensor - as directed every 10 days; Duration: 90 days E11.9 08/14/2024 Active Linkwood-3 1000 MG 1 cap(s) orally once a day; Duration: 30 day(s) Active Insulin Degludec 200 UNIT/ML 42 units Subcutaneous once daily 08/20/2023 Active Aspirin 81 MG 1 tablet Orally Once a day; Duration: 30 day(s) Active Vital Signs Blood pressure systolic 146 mm Hg 01/13/20 25 Blood pressure diastolic 84 mm Hg 025 Heart Rate 67 /min 01/12/2025 Height 68 in 01/12/2025 Weight 183.8 lbs 01/12/2025 BMI 27.94 kg/m2 01/12/2025 Encounters Encounter Location Date Provider Diagnosis [facility] [address] [facility] [place] [address] [place] [id number] 01/12/2025 Tobi Valiente Acute cough R05.1 an d Low back pain, unspecified M54.50 Assessments Encounter Date Diagnosis (ICD Code) Assessment Notes Treatment Notes Treatment Clinical Notes Section Notes 01/12/2025 Acute cough (ICD-10 - R05.1) 01/12/2025 Low back pain, unspecified (ICD-10 - M54.50) Plan Of Treatment Medication Medication Name Sig Start Date Stop Date Notes Promethazine-DM 6.25-15 MG/5ML 5 mL as n eeded Orally every 6 hrs 01/12/2025 Benzonatate 200 MG 1 capsule as needed Orally Three times a day 01/12/2025 Zithromax Z-Keagan 250 MG as directed Orall y daily; Duration: 5 days 01/12/2025 Next Appt Details Follow Up: as scheduled,and prn, Reason: Provider Name:Tobi Bland ry, 08/10/2025 10:00:00 AM, [address], [address] , [place], [place], [id number], Progress Notes * Hayden HIGGINSDOB:1940 (84 yo M)Acc No.[id number]:01/12/2025 Progress Notes Patient: Hayden TATE Provider: Ramirez Valiente M.D. :1940 A ge:84 Y S ex:Male Date:01/12/2025 Address:[address] [place] [address] Subjective: * Chief Complaints: * 1 . Not feeling well, struggling to walk. * HPI: E NT/respiratory: 84 year old male presents with c/o cough P t complains of? s mall amount of thick, white sputum cough for about a month. Associated with nasal congestion, weakness and shortness of breath. Pt states he has been taking OTC Tussin but symptoms have not improved. * ROS: M USCULOSKELETAL: Back pain yes, h as been walking slower lately. ? * Medical History: H ypertension, Hyperlipidemia, Sinus/Allergy, Arthritis, Prostate Problems, Type 2 diabetes. * Surgical History: P rostatectomy . * Hospitalization/Major Diagno stic Procedure: D enies Past Hospitalization. * Family History: Diabetes-aunt and great aunt Cancer-sister. * Social History: C URRENT TOBACCO USE: No . C affeine: no. Marital Status: . Alcohol: no. * Medications: T aking Aspirin 81 MG Tablet Delayed Release 1 tablet Orally Once a day , Taking Linkwood-3 1000 MG Capsule 1 cap(s) orally once a day , Taking Insulin Degludec 200 UNIT/ML Solution Pen-injector 42 units Subcutaneous once daily , Taking Colestipol HCl 1 GM Tablet 1 tablet Orally Once a day , Taking Dexcom G6 Sensor - Miscellaneous as directed every 10 days , Notes to Pharmacist: E11.9, Taking Dexcom G6 Freight Broker Agent - Device as directed , Notes to Pharmacist: E11.9, Taking Dexcom G6 Transmitter - Miscellaneous as directed , Notes to Pharmacist: E11.9, Taking Pioglitazone HCl 15 MG Tablet Take 1 tablet by mouth once daily , Taking Telmisartan 80 MG Tablet 1 tablet Orally Once a day , Taking metFORMIN HCl ER 500 MG Tablet Extended Release 24 Hour take 2 tablets by mouth once daily , Taking Atorvastatin Calcium 80 MG Tablet 1 tab(s) orally once a day , Taking Basaglar KwikPen 100 UNIT/ML Solution Pen- injector INJECT 42 UNITS SUBCUTANEOUSLY EVERY DAY , Taking glipiZIDE 5 MG Tablet 1 tablet 30 minutes before breakfast Orally Once a day , Taking amLODIPine Besylate 2.5 MG Tablet 1 tablet Orally Once a day , Taking Metoprolol Succinate ER 100 MG Tablet Extended Release 24 Hour Take 1 tablet by mouth once daily , Medication List reviewed and reconciled with the patient * Allergies: N .K.D.A. Objective: * Vitals: W t: 183.8, Temp: 97.7, BP: 146/84, HR: 67, O2 Sat: 98% on RA, Nurse: monroe, Ht: 68, BMI:27.94. * Examination: E NT/Respiratory: General Appearance: N AD. O ral cavity : e rythema without exudate on pharynx. H eart : R RR, normal S1 S2. L ungs: c lear to auscultation bilaterally. G eneral Examination: Back: s tands and moves slowly, no CVA tenderness. ? Assessment: * Assessment: 1. A cute cough - R05.1 (Primary) 2 . L ow back pain, unspecified - M54.50? Plan: * Treatment: Value Reference Range w bc 8.6 3.5 - 10 * l ym 15.6% 15 - 50 * m id 4.8% 2 - 15 * g ran 79.6% 35 - 80 * r bc 5.15 3.5 - 5.5 * h gb 15.5 11.5 - 16.5 * h ct 45.7 35 - 55 * m cv 88.7 75 - 100 * m ch 30.0 25 - 35 * m chc 33.8 31 - 38 * p lat 124 100 - 400 * Mary Ellen Franco 01/12/2025 11:28: 15 AM EDT > Provider reviewed results while patient in office. 2.?Low back pain, unspecified?Imaging: X ray : Spine, lumbosacral (Performed Date - 01/12/2025)?moderate changes of DDD* Agustina Lincoln 01/17/2025 12: 14:48 PM EDT > see phone encounter * Procedure Codes: G 2211 Complex e/[place], [address] CAPILLARY BLOOD DRAW, 48342 CBC WITH AUTO DIFF, 1036F TOBACCO NON-USER * Follow Up: a s scheduled,and prn * Images: Billing Information: * Visit Code: 91690 Office Visit, Est Pt., Level 4. * Procedure Codes: G2211 Complex e/[place]. [address] CAPILLARY BLOOD DRAW. 77938 CBC WITH AUTO DIFF. 1036F TOBACCO NON-USER. * Electronic signature of Nicol Valiente MD on 02/20/2025 at 03:19 PM EST Sign off status: Pending * Provider: Ramirez Valiente M.D. Date: 0 01/12/2025 Generated for Cheri orellana/Julia/eTransmitting on: 1 04/22/2024 03:19 PM EST History and Physical Notes * HPI (History of Present Illness) Category Sub-Category Detail Notes Category Not es ENT/respiratory cough Pt complains of small amount of thick, white sputum cough for about a month. Associated with nasal congestion, weakness and shortness of breath. Pt states he has been taking OTC Tussin but symptoms have not improved Examination Category Sub-Category Detail Notes Category Not es ENT/Respiratory Oral cavity : erythema without exudate on pharynx Heart : RRR, normal S1 S2 Lungs: clear to auscultatio n bilaterally General Appearance: NAD General Examination Back: stands and moves slow ly, no CVA tenderness
--- OUTSIDE RECORDS SUMMARY | 2025-02-09 05:00 | XMS_ITS ---
[facility] Address [address] [place] [id number] Care Team Providers Care Applications Systems Analyst Name Role Phone Tobi Valiente Unavailable [phone] Allergies No Known Allergies Results Component Value Reference Range Notes Glucose (In-House) Reviewed date:02/12/2025 04:53:31 PM Interpretation:124 Performing Lab: Notes/Report: 124 blood glucose 124 74 - 106 mg/dL Glycohemoglobin A1c (in hous e) Reviewed date:02/12/2025 04:53:31 PM Interpretation:7.5 Performing Lab: Notes/Report: 7.5 glycohemoglobin 7.5% 5 - 6.5 % P-Comprehensive Metabolic Pa jesus alberto (CMP) Reviewed date:02/12/2025 04:53:31 PM Interpretation:Normal Performing Lab: Notes/Report: Test performed by [facility], [facility] , [address], [place] [address] Kaiser Hairston MD, Super[employer] Former CLIA: [id number] Sodium 142 135-145 mmol/L Potassium 4.8 3.5-5.3 mmol/L Chloride 104 97-108 mmol/L CO2 25 20-32 mmol/L Glucose 100 65-99 mg/dL BUN 26 8-23 mg/dL Creatinine 1.09 0.70-1.30 mg/dL Calcium 9.7 8.6-10.4 mg/dL eGFR by Creatinine 67 >59 mL/min/1.73m2 Protein 6.7 6.0-8.3 g/dL Albumin 4.3 3.5-5.3 g/dL Alkaline Phosphatase 92 40-129 IU/L ALT (SGPT) 22 <5-55 IU/L AST (SGOT) 23 <5-46 IU/L Bilirubin, Total 0.8 <0.2-1.2 mg/dL A/G Ratio 1.8 1.1-2.5 P-TSH reflex to FT4 Reviewed date:02/12/2025 04:53:31 PM Interpretation:Normal Performing Lab: Notes/Report: Test performed by [facility], [address] , [address], [place] [address] Kaiser Hairston MD, Super[employer] Former CLIA: [id number] TSH reflex to FT4 4.43 0.43-5.25 mU/L REASON FOR VISIT 6 Month Check Up Medications Medication SIG (Take, Route, Frequency, Duration) Notes Start Date End Date Status Telmisartan 80 MG 1 tablet Orally Once a day; Duration: 90 days Active Pioglitazone HCl 15 MG Take 1 tablet by mouth once daily; Duration: 90 Active Atorvastatin Calcium 80 MG 1 tab(s) orally once a day; Duration: 90 days Active metFORMIN HCl ER 500 MG take 2 tablets b y mouth once daily; Duration: 90 days Active Dexcom G6 Transmitter - as directed E11.9 08/14/2024 Active Insulin Degludec 200 UNIT/ML 42 units Subcutaneous once daily 08/20/2023 Active [place]-3 1000 MG 1 cap(s) orally once a day; Duration: 30 day(s) Active Dexcom G6 Sensor - as directed every 10 days; Duration: 90 days E11.9 08/14/2024 Active Colestipol HCl 1 GM 1 tablet Orally Once a day; Duration: 30 days 08/09/2024 Active Dexcom G6 Yardage Control Clerk - as directed E11.9 Active Aspirin 81 MG 1 tablet Orally Once a day; Duration: 30 day(s) Active Zithromax Z-Keagan 250 MG as directed Orall y daily; Duration: 5 days 01/12/2025 Not-Taking Metoprolol Succinate ER 100 MG Take 1 tablet by mouth once daily; Duration: 90 Active Benzonatate 200 MG 1 capsule as needed Orally Three times a day 01/12/2025 Not-Pascual ing Promethazine-DM 6.25-15 MG/5ML 5 mL as needed Orally every 6 hrs 01/12/2025 Not-Taking glipiZIDE 5 MG 1 tablet 30 minutes before breakfast Orally Once a day; Duration: 90 days Active Basaglar KwikPen 100 UNIT/ML INJECT 42 UNITS SUBCUTANEOUSLY EVERY DAY; Duration: 35 Active amLODIPine Besylate 2.5 MG 1 tablet Orally Once a day; Duration: 90 days Active Immunizations Vaccine Route Administration Date Status Comme nts Fluzone High Dose (65yr and older) IM Intramuscular 02/09/2025 Administered Problems Problem Type SNOMED Code ICD Code Onset Dates Problem Status W/U Status Risk Notes Problem Chronic pain (64978608) Other chronic pain (G89.29) Active confirmed Problem Degeneration of intervertebral disc of lumbar region with discogenic back pain (M51.360) Active confirmed Vital Signs Blood pressure systolic 142 mm Hg 02/10/20 25 Blood pressure diastolic 80 mm Hg 025 Heart Rate 66 /min 02/09/2025 Height 68 in 02/09/2025 Weight 184.8 lbs 02/09/2025 BMI 28.1 kg/m2 02/09/2025 Encounters Encounter Location Date Provider Diagnosis [facility] [address] [facility] [address] [id number] 02/09/2025 Tobi Valiente Type 2 diabetes yoshi itus without complications E11.9 ; Primary hypertension I10 ; Mixed hyperlipidemia E78.2 ; Other chronic pain G89.29 ; Low back pain, unspecified M54.50 ; Degeneration of intervertebral disc of lumbar region with discogenic back pain M51.360 and Encounter for immunization Z23 Assessments Encounter Date Diagnosis (ICD Code) Assessment Notes Treatment Notes Treatment Clinical Notes Section Notes 02/09/2025 Type 2 diabetes mellitus without complications (ICD-10 - E11.9) 02/09/2025 Primary hypertension (ICD-10 - I10) 02/09/2025 Mixed hyperlipidemia (ICD-10 - E78.2) 02/09/2025 Other chronic pain (ICD-10 - G89.29) 02/09/2025 Low back pain, unspecified (ICD-10 - M54.50) 02/09/2025 Degeneration of intervertebral disc of lumbar region with discogenic back pain (ICD-10 - M51.360) 02/09/2025 Encounter for immunization (ICD-10 - Z23) Plan Of Treatment Pending Test Test Name Order Date MRI : Spine, Lumbosacral, without contra st 02/09/2025 Next Appt Details Follow Up: via phone to repo rt test results,6 Months, Reason: Provider Name:Tobi Bland ry, 08/10/2025 10:00:00 AM, [address], [address], [place], [place], [id number], Progress Notes * Hayden HIGGINSDOB:1940 (84 yo M)Acc No.[id number]:02/09/2025 Progress Notes Patient: Hayden TATE Provider: Ramirez Valiente M.D. :1940 A ge:84 Y S ex:Male Date:02/09/2025 Address:[address] [place], [place] [address] Subjective: * Chief Complaints: * 1 . 6 Month Check Up. * HPI: C ardiology: 84 year old male presents with c/o Blood Pressure Elevated P t here for 6 months follow up on Hypertension. Pt states he has noticed he has trouble lifting things and his strength has weakened. c/o Hyperlipidemia P t is fasting today. * Medical History: H ypertension, Hyperlipidemia, Sinus/Allergy, [...] tablet Orally Once a day , Taking [place]-3 1000 MG Capsule 1 cap(s) orally once a day , Taking Insulin Degludec 200 UNIT/ML Solution Pen-injector 42 units Subcutaneous once daily , Taking Colestipol HCl 1 GM Tablet 1 tablet Orally Once a day , Taking Dexcom G6 Sensor - Miscellaneous as directed every 10 days , Notes to Pharmacist: E11.9, Taking Dexcom G6 Yardage Control Clerk - Device as directed , Notes to [...] tablet by mouth once daily , Not-Taking Zithromax Z-Keagan 250 MG Tablet as directed Orally daily , Not-Taking Promethazine-DM 6.25-15 MG/5ML Syrup 5 mL as needed Orally every 6 hrs , Not-Taking Benzonatate 200 MG Capsule 1 capsule as needed Orally Three times a day , Medication List reviewed and reconciled with the patient * Allergies: N .K.D.A. Objective: * Vitals: W t: 184.8, Temp: 98.1, BP: 142/80, HR: 66, Nurse: ALEXANDER, Ht: 68, BMI:28.1. * Examination: E ndocrinology: General Appearance: N AD, uses a cane to assist with ambulation. H eart: R SR. L ungs: c lear to auscultation. E xtremities: n o leg edema. N eurologic Exam: s tands and moves slowly. Assessment: * Assessment: 1. T ype 2 diabetes mellitus without complications - E11.9 (Primary) 2 . P rimary hypertension - I10 3 . M ixed hyperlipidemia - E78.2 4 .?Other chronic pain - G89.29 5 . L ow back pain, unspecified - M54.50 & #160; 6 . D egeneration of intervertebral disc of lumbar region with discogenic back pain - M51.360 7 . E ncounter for immunization - Z23 Plan: * Treatment: Value Reference Range A /G Ratio 1.8 1.1-2.5 - * A lbumin 4.3 3.5-5.3 - g/dL * A lkaline Phosphatase 92 40-129 - IU/L * A LT (SGPT) 22 <5-55 - IU/L * A ST (SGOT) 23 <5-46 - IU/L * B ilirubin, Total 0.8 <0.2-1.2 - mg/dL * B UN 26 H 8-23 - mg/dL * C alcium 9.7 8.6-10.4 - mg/dL * C hloride 104 97-108 - mmol/L * C O2 25 20-32 - mmol/L * C reatinine 1.09 0.70-1.30 - mg/dL * G lucose 100 H 65-99 - mg/dL * P otassium 4.8 3.5-5.3 - mmol/L * S odium 142 135-145 - mmol/L * P rotein 6.7 6.0-8.3 - g/dL * e GFR by Creatinine 67 >59 - mL/min/1.73m2 * Tobi Valiente 02/11/2025 09:58:21 PM EDT > Sent to to inform of satisfactory results. Agustina Lincoln 02/12/2025 04:53:12 PM EDT > pt informed. ?LAB: P-TSH reflex to FT4 (Collection Date & Time - 02/09/2025 11:01 AM)? Normal* Value Reference Range T SH reflex to FT4 4.43 0.43-5.25 - mU/L * Tobi Valiente 02/11/2025 09:58:21 PM EDT > Sent to to inform of satisfactory results. Agustina Lincoln 02/12/2025 04:53:12 PM EDT > pt informed. ?LAB: Glucose (In-House) (Collection Date & Time - 02/09/2025)?124* Value Reference Range b lood glucose 124 74 - 106 mg/dL * Aubrie More 02/09/2025 12 :20:28 PM EDT > Tobi Valiente 02/11/2025 09:58:21 PM EDT > Sent to to inform of satisfactory results. Agustina Lincoln 02/12/2025 04:53:12 PM EDT > pt informed. ?LAB: Glycohemoglobin A1c (in house) (Collection Date & Time - 02/09/2025)? 7.5* Value Reference Range g lycohemoglobin 7.5% 5 - 6.5 % * Aubrie More 02/09/2025 12 :27:14 PM EDT > Tobi Valiente 02/11/2025 09:58:21 PM EDT > Sent to to inform of satisfactory results. Agustina Lincoln 02/12/2025 04:53:12 PM EDT > pt informed. 2.?Primary hypertension?LAB: P-Comprehensive Metabolic Panel (CMP) (Collection Date & Time - 02/09/2025 11:01 AM)?Normal* Value Reference Range A /G Ratio 1.8 1.1-2.5 - * A lbumin 4.3 3.5-5.3 - g/dL * A lkaline Phosphatase 92 40-129 - IU/L * A LT (SGPT) 22 <5-55 - IU/L * A ST (SGOT) 23 <5-46 - IU/L * B ilirubin, Total 0.8 <0.2-1.2 - mg/dL * B UN 26 H 8-23 - mg/dL * C alcium 9.7 8.6-10.4 - mg/dL * C hloride 104 97-108 - mmol/L * C O2 25 20-32 - mmol/L * C reatinine 1.09 0.70-1.30 - mg/dL * G lucose 100 H 65-99 - mg/dL * P otassium 4.8 3.5-5.3 - mmol/L * S odium 142 135-145 - mmol/L * P rotein 6.7 6.0-8.3 - g/dL * e GFR by Creatinine 67 >59 - mL/min/1.73m2 * Tobi Valiente 02/11/2025 09:58:21 PM EDT > Sent to to inform of satisfactory results. Agustina Lincoln 02/12/2025 04:53:12 PM EDT > pt informed. 3.?Mixed hyperlipidemia?LAB: P-Comprehensive Metabolic Panel (CMP) (Collection Date & Time - 02/09/2025 11:01 AM)?Normal* Value Reference Range A /G Ratio 1.8 1.1-2.5 - * A lbumin 4.3 3.5-5.3 - g/dL * A lkaline Phosphatase 92 40-129 - IU/L * A LT (SGPT) 22 <5-55 - IU/L * A ST (SGOT) 23 <5-46 - IU/L * B ilirubin, Total 0.8 <0.2-1.2 - mg/dL * B UN 26 H 8-23 - mg/dL * C alcium 9.7 8.6-10.4 - mg/dL * C hloride 104 97-108 - mmol/L * C O2 25 20-32 - mmol/L * C reatinine 1.09 0.70-1.30 - mg/dL * G lucose 100 H 65-99 - mg/dL * P otassium 4.8 3.5-5.3 - mmol/L * S odium 142 135-145 - mmol/L * P rotein 6.7 6.0-8.3 - g/dL * e GFR by Creatinine 67 >59 - mL/min/1.73m2 * Tobi Valiente 02/11/2025 09:58:21 PM EDT > Sent to to inform of satisfactory results. Agustina Lincoln 02/12/2025 04:53:12 PM EDT > pt informed. 4.?Other chronic pain?Imaging: MRI : Spine, Lumbosacral, without contrast* Christa Holcomb 02/12/2025 10: 13:55 AM EDT > faxed to [facility] Scheduling 5.?Low back pain, unspecified?Imaging: MRI : Spine, Lumbosacral, without contrast* Christa Holcomb 02/12/2025 10: 13:55 AM EDT > faxed to [facility] Scheduling 6.?Degeneration of intervertebral disc of lumbar region with discogenic back pain?Imaging: MRI : Spine, Lumbosacral, without contrast* Christa Holcomb 02/12/2025 10: 13:55 AM EDT > faxed to [facility] Scheduling * Immunizations: Fluzone High Dose (65yr and older) : 0.5 mL (Route: Intramuscular) given by Aubrie More on Right Deltoid (Encounter for immunization) * Procedure Codes: G 2211 Complex e/[place], [address] GLUCOSE TEST, 88376 GLYCATED HEMOGLOBIN TEST, Modifiers: QW * Follow Up: v ia phone to report test results,6 Months * Images: Billing Information: * Visit Code: 85384 Office Visit, Est Pt., Level 4. * Procedure Codes: G2211 Complex e/[place]. [address] GLU[place]SE [place]. 06367 GLYCATED HEMOGLOBIN TEST. Modifiers: QW * Electronic signature of Nicol Valiente MD on 02/20/2025 at 03:19 PM EST Sign off status: Pending * Provider: Ramirez Valiente M.D. Date: Generated for Cheri orellana/Julia/Essenceitting on: 04/22/2024 03:19 PM EST History and Physical Notes * HPI (History of Present Illness) Category Sub-Category Detail Notes Category Not es Cardiology Blood Pressure Elevated Pt here for 6 months follow up on Hypertension. Pt states he has noticed he has trouble lifting things and his strength has weakened Hyperlipidemia Pt is fasting today Examination Category Sub-Category Detail Notes Category Not es Endocrinology Heart: RSR Lungs: clear to auscultatio n Extremities: no leg edema General Appearance: NAD, uses a cane to assist with ambulation Neurologic Exam: stands and moves slo wly
--- NOTE | 2025-02-20 15:13 | MR_ITS ---
PROCEDURE INFORMATION: Exam: MR Lumbar Spine Without Contrast Exam date and time: 02/20/2025 3:45 PM Age: 84 years old Clinical indication: Low back pain; Additional info: Other chronic pain/lbp/degeneration TECHNIQUE: Imaging protocol: Magnetic resonance imaging of the lumbar spine without contrast. COMPARISON: CR XR LUMBAR SPINE MIN 4V 01/12/2025 11:53 AM FINDINGS: Bones/joints: The vertebral body heights and alignment are maintained. There is mild multilevel degenerative disc disease consisting of loss of disc height and loss of normal disc signal. Spinal cord: Visualized cord, conus medullaris and cauda equina are unremarkable without compression. L1-L2: There is mild diffuse disc bulging without significant spinal canal stenosis. There is mild right neural foraminal stenosis secondary to foraminal disc osteophyte bulging and facet hypertrophy. The left neural foramen appears patent. L2-L3: There is mild spinal canal stenosis secondary to mild diffuse disc bulging and ligamentum flavum/facet hypertrophy. There is mild bilateral neural foraminal stenosis secondary to foraminal disc bulging and facet hypertrophy. L3-L4: There is mild spinal canal stenosis secondary to mild diffuse disc bulging, ligamentum flavum/facet hypertrophy, and posterior epidural fat. There is moderate bilateral neural foraminal stenosis secondary to foraminal disc osteophyte bulging and facet hypertrophy. L4-L5: There is severe spinal canal stenosis secondary to a moderate-sized broad-based central disc protrusion, ligamentum flavum/facet hypertrophy, and posterior epidural fat. There is severe bilateral neural foraminal stenosis secondary to foraminal disc bulging and facet hypertrophy. L5-S1: There is mild diffuse disc bulging without significant spinal canal stenosis. There is moderate right and qgaj-[id number]-hpbhcphn left neural foraminal stenosis secondary to foraminal disc bulging and facet hypertrophy. Soft tissues: Unremarkable. IMPRESSION: 1. Severe spinal canal stenosis at L4-L5. 2. Please see above for specific findings at each level.
--- OUTSIDE RECORDS SUMMARY | 2025-02-20 15:19 | XMS_ITS | Clinical Summary ---
Author Organization [facility] Address [address] [place] [address] Phone Care Team Providers Care Headliner Installer Name Role Phone Status, Fax Unavailable Conditions or Problems Problem Name Problem Code Onset Date Status Entry Date Provider Comment Standard Description Annotate Headache 00097898 (SNOMED CT) 07/17 Active 07/17 Sima Mayes Headache ADR T50.905A (ICD-10-CM) 07/17 Active 07/17 Sima Mayes Adverse effect of unspecified drugs, medicaments and biological substances, initial encounter Lung mass 249343711 (SNOMED CT) 05/08 Active 05/08 Moriah Nordan Lung mass 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 05/08 Moriah Artur Pneumonia in diseases classified elsewhere Medications Medication Instructions Start Date Stop Date Generic Name NDC Provider ITRACONAZOLE 100 MG CAPS take 2 o bid ITRACONAZOLE [id number] Gallo Oviedo MD ITRACONAZOLE 100 MG CAPS take 2 po tid x 3 days then take 2 po bid with carbonated beverage ITRACONAZOLE [id number] Gallo Oviedo MD ITRACONAZOLE 100 MG CAPS take 2 o bid ITRACONAZOLE [id number] Gallo Oviedo MD MULTIVITAMINS ORAL CAPSULE MULTIPLE VITAMIN 18147472378 Elena Z ITRACONAZOLE 100 MG CAPS take 2 po bid ITRACONAZOLE [id number] Elena Z ITRACONAZOLE 100 MG CAPS take 2 po bid ITRACONAZOLE [id number] Gallo Oviedo MD ITRACONAZOLE 100 MG CAPS take 2 po tid x 3 days then take 2 po bid with carbonated beverage ITRACONAZOLE [id number] Gallo Oviedo MD MULTIVITAMINS ORAL CAPSULE MULTIPLE VITAMIN 60111189034 Melodie Sutherland TOPROL XL 50 MG [id number] METOPROLOL SUCCINATE 81496267009 Melodie Sutherland PRAVACHOL 40 MG ORAL TABLET PRAVASTATIN SODIUM 49697144794 Melodie Sutherland MULTIVITAMINS ORAL CAPSULE MULTIPLE VITAMIN 26465747458 Melodie Sutherland METFORMIN HCL 1000 MG TABS METFORMIN HCL 42055874389 Melodie Sutherland LOVAZA 1 GM CAPS [id number] ETHYL ESTERS 74719097813 Melodie Sutherland LEVEMIR SOLUTION INSULIN DETEMIR SOLN 15917003888 Melodie Sutherland DIOVAN 160 MG TABS VALSARTAN 52228202557 Melodie Sutherland ADULT ASPIRIN EC LOW STRENGTH 81 MG ORAL TABLET DELAYED RELEASE ASPIRIN 37439567443 Melodie Sutherland ACTOS 30 MG TABS PIOGLITAZONE HCL 32564049580 Melodie Sutherland Medications Administered No information available. Allergies, Adverse Reactions, Alerts No information available. Results Date Name Value Unit Range Flag Description Lab Report: Histoplasma Anti gen, Urine, Histoplasma Antigen, Serum HIS AG UR 0.00 EU {EIA'U} Histoplasma capsulatum Ag [Units/volume] in Urine by Immunoassay Lab Report: Comprehensive Ia tabolic Panel ANIONGAP 3 mmol/L 3-11 N [...] Date CPT-Cooral Continue oral antibiotics 20 01/10/03 CPT-05999 CMP CPT-01122 Itraconazole Level 4 CPT-Cooral Continue oral antibiotics 20 31/07/29 CPT-Cooral Continue oral antibiotics 20 30/06/25 CPT-28985 CMP CPT-38286 Itraconazole Level 6 CPT-56988 [facility] CPT-53689 Itraconazole Level 6 CPT-89233 [facility] CPT-02118 [facility] CPT-25285 Histoplasmosis Urinary AG 20 02/05/27 CPT-LAB Other [...]
--- OUTSIDE RECORDS SUMMARY | 2025-02-20 15:20 | XMS_ITS | Patient Health Record ---
[facility] Organization [facility] Address [address] [facility] [address] [place], [place] [id number] Care Team Providers Care Restaurant District Manager Name Role Phone Tobi Valiente Unavailable [phone] Allergies No Known Allergies Results Component Value [...] Performing Lab: Notes/Report: moderate changes of DDD Glucose (In-House) Reviewed date:02/12/2025 04:53:31 PM Interpretation:124 Performing Lab: Notes/Report: 124 blood glucose 124 74 - 106 mg/dL Glycohemoglobin A1c (in hous e) Reviewed date:02/12/2025 04:53:31 PM Interpretation:7.5 Performing Lab: Notes/Report: 7.5 glycohemoglobin 7.5% 5 - 6.5 % P-Comprehensive Metabolic Pa jesus alberto ([facility]) Reviewed date:02/12/2025 04:53:31 PM Interpretation:Normal Performing Lab: Notes/Report: Test performed by [employer], [employer] [facility] , [address], [place] [id number] Kaiser Hairston MD, Hospital Wellness Coordinator CLIA: [id number] Sodium 142 135-145 mmol/L Potassium 4.8 3.5-5.3 [...] Interpretation:Normal Performing Lab: Notes/Report: Test performed by [facility] [address] [place] [address] , [place] [address] Kaiser Hairston MD, Hospital Wellness Coordinator CLIA: [id number] TSH reflex to FT4 4.43 0.43-5.25 mU/L P-Comprehensive Metabolic Pa jesus alberto (C[facility]) Reviewed date:08/10/2024 08:47:18 AM Interpretation:gluc 57 Performing Lab: Notes/Report: Test performed by [facility] [address] [place] [address] , [place] [address] Kaiser Hairston MD, Hospital Wellness Coordinator CLIA: [id number] Sodium 144 135-145 mmol/L Potassium 4.2 3.5-5.3 [...] Interpretation:9.4 Performing Lab: Notes/Report: Test performed by [facility] [address] [place], [place] [address] , [address], [place] [address] Kaiser Hairston MD, Hospital Wellness Coordinator CLIA: [id number] Hemoglobin A1C 9.4 <5.7 % The following HbA1c ranges recommended by the [place] [employer] (ADA) may be used as an aid in the diagnosis of diabetes mellitus. HbA1c Suggested Diagnosis >=6.5% Diabetic 5.7% - 6.4% Pre-Diabetic <5.7% Non-Diabetic P-Lipid Panel Reviewed date:08/10/2024 08:47:18 AM Interpretation:hdl 33 Performing Lab: Notes/Report: Test performed by [facility] [address] [place] [address] , [address], [place] [address] Kaiser Hairston MD, Hospital Wellness Coordinator CLIA: [id number] Cholesterol 108 <200 mg/dL Triglycerides 66 <150 [...] Normal Performing Lab: Notes/Report: Test performed by [facility] [address] [place] [address] , [facility], [place] [address] Kaiser Hairston MD, Hospital Wellness Coordinator CLIA: [id number] TSH reflex to FT4 3.72 0.43-5.25 mU/L P-Microalbumin/Creatinine, R andom Urine Sample Reviewed date:08/10/2024 08:47:18 AM Interpretation: Normal Performing Lab: Notes/Report: Test performed by [facility] [address] [place] [address] [address], [place] [address] Kaiser Hairston MD, Hospital Wellness Coordinator CLIA: [id number] Albumin/Creatinine Ratio, Urine 58 0-30 ug/m g Microalbumin, Urine, Random 4.9 Creatinine, Urine 84.7 Estimated Average Glucose Reviewed date:08/10/2024 08:47:18 AM Interpretation: Normal Performing Lab: Notes/Report: Test performed by [facility] [address] [place] [address] [address], [place] [address] Kaiser Hairston MD, Hospital Wellness Coordinator CLIA: [id number] Estimated Average Glucose (eAG) 223 Estimated Average [...] Duration) Notes Start Date End Date Status Aspirin 81 MG 1 tablet Orally Once a day; Duration: 30 day(s) Active Insulin Degludec 200 UNIT/ML 42 units Subcutaneous once daily 08/20/2023 Active [place]-3 1000 MG 1 cap(s) orally once a day; Duration: 30 day(s) Active Basaglar KwikPen 100 UNIT/ML INJECT 42 UNITS SUBCUTANEOUSLY EVERY DAY; Duration: 35 Active Dexcom G6 Sensor - as directed every 10 days; Duration: 90 days E11.9 08/14/2024 Active Zithromax Z-Keagan 250 MG as directed Orall y daily; Duration: 5 days 01/12/2025 Not-Taking Colestipol HCl 1 GM 1 tablet Orally Once a day; Duration: 30 days 08/09/2024 Active Metoprolol Succinate ER 100 MG Take 1 tablet by mouth once daily; Duration: 90 Active Dexcom G6 Transmitter - as directed E11.9 08/14/2024 Active Benzonatate 200 MG 1 capsule as needed Orally Three times a day 01/12/2025 Not-Pascual ing Dexcom G6 Tool Operator - as directed E11.9 Active Promethazine-DM 6.25-15 MG/5ML 5 mL as needed Orally every 6 hrs 01/12/2025 Not-Taking Telmisartan 80 MG 1 tablet Orally Once a day; Duration: 90 days Active Pioglitazone HCl 15 MG Take 1 tablet by mouth once daily; Duration: 90 Active Atorvastatin Calcium 80 MG 1 tab(s) orally once a day; Duration: 90 days Active metFORMIN HCl ER 500 MG take 2 tablets b y mouth once daily; Duration: 90 days Active glipiZIDE 5 MG 1 tablet 30 minutes before breakfast Orally Once a day; Duration: 90 days Active amLODIPine Besylate 2.5 MG 1 tablet Orally Once a day; Duration: 90 days Active Immunizations Vaccine Route Administration Date Status Comme nts xFluzone High Dose-private (65yr&older) Unknown 01/06/2021 Administered Prevnar (PCV20) IM Intramuscular 02/09/2022 Administered PNEUMOVAX 23 VACCINE Unknown 04/24/1999 Administered PNEUMOVAX 23 VACCINE IM Intramuscular 02/09/2024 Administe red Hepatitis A (adult) Unknown 02/02/2019 Administered Fluzone High Dose (65yr and older) IM Intramuscular 02/09/2022 Administered Fluzone High Dose (65yr and older) IM Intramuscular 02/08/2023 Administered Fluzone High Dose (65yr and older) IM Intramuscular 02/09/2024 Administered Fluzone High Dose (65yr and older) IM Intramuscular 02/09/2025 Administered COVID 19 Moderna Unknown 06/13/2020 Administered COVID 19 Moderna Unknown 07/11/2020 Administered COVID 19 Moderna Unknown 02/12/2021 Administered Problems Problem Type SNOMED Code ICD Code Onset Dates Problem Status W/U Status Risk Notes Problem Type II diabetes mellitus without complication (182530438) Type 2 diabetes mellitus without complications (E11.9) Active confirmed Problem Mixed hyperlipidemia (437037345) Mixed hyperlipidemia (E78.2) Active confirmed Problem Chronic pain (90254600) Other chronic pain (G89.29) Active confirmed Problem Long-term current use of insulin (419828573) senior living (current) use of insulin (Z79.4) Active confirmed Problem Primary hypertension (20031858) Primary hypertension (I10) Active confirmed Problem Degeneration of intervertebral disc of lumbar region with discogenic back pain (M51.360) Active confirmed Vital Signs Heart Rate 66 /min 02/09/2025 Blood pressure diastolic 80 mm Hg 02/09/2025 Height 68 in 02/09/2025 Blood pressure systolic 142 mm Hg 02/09/2025 Weight 184.8 lbs 02/09/2025 BMI 28.1 kg/m2 02/09/2025 Encounters Encounter Location Date Provider Diagnosis [facility] [address] [place], [place] [id number] 08/09/2024 Tobi [place] Type 2 diabetes yoshi itus without complications E11.9 ; Mixed hyperlipidemia E78.2 ; Primary hypertension I10 ; Chronic diarrhea K52.9 and BMI 27.0-27.9,adult Z68.27 [facility] [address] [place], [place] [id number] 01/12/2025 Tobi [place] Acute cough R05.1 an d Low back pain, unspecified M54.50 [facility] [address] [place], [place] [id number] 02/09/2025 Tobi [place] Type 2 diabetes yoshi itus without complications E11.9 ; Primary hypertension I10 ; Mixed hyperlipidemia E78.2 ; Other chronic pain G89.29 ; Low back pain, unspecified M54.50 ; Degeneration of intervertebral disc of lumbar region with discogenic back pain M51.360 and Encounter for immunization Z23 [facility] [address] [place], [place] [id number] 02/19/2025 Tobi [place] [facility] [address] [place], [place] [id number] 04/04/2024 Tobi [place] Type 2 diabetes yoshi itus without complications E11.9 [facility] [address] [place], [place] [id number] 07/07/2024 Tobi [place] [facility] [address] [place] [id number] 08/10/2024 Tobi [place] [facility] [address] [place], [place] [id number] 08/14/2024 Tobi [place] [facility] [address] [place], [place] [id number] 09/04/2024 Tobi [place] Primary hypertension I10 [facility] [address] [place], [place] [id number] 10/24/2024 Tobi [place] [facility] [address] [place], [place] [id number] 12/01/2024 Tobikimmie Valiente [facility] [address] [facility] [address] [place], [place] [id number] 01/17/2025 Tobi Valiente Assessments Encounter Date Diagnosis (ICD Code) Assessment Notes Treatment Notes Treatment Clinical Notes Section Notes 04/04/2024 Type 2 diabetes mellitus without complications (ICD-10 - E11.9) 08/09/2024 Type 2 diabetes mellitus without complications (ICD-10 - E11.9) 09/04/2024 Primary hypertension (ICD-10 - I10) 01/12/2025 Low back pain, unspecified (ICD-10 - M54.50) 01/12/2025 Acute cough (ICD-10 - R05.1) 02/09/2025 Type 2 diabetes mellitus without complications (ICD-10 - E11.9) 08/09/2024 Mixed hyperlipidemia (ICD-10 - E78.2) 02/09/2025 Primary hypertension (ICD-10 - I10) 08/09/2024 Primary hypertension (ICD-10 - I10) 02/09/2025 Mixed hyperlipidemia (ICD-10 - E78.2) 02/09/2025 Other chronic pain (ICD-10 - G89.29) 08/09/2024 Chronic diarrhea (ICD-10 - K52.9) 02/09/2025 Low back pain, unspecified (ICD-10 - M54.50) 08/09/2024 BMI 27.0-27.9,adult (ICD-10 - Z68.27) 02/09/2025 Degeneration of intervertebral disc of lumbar region with discogenic back pain (ICD-10 - M51.360) 02/09/2025 Encounter for immunization (ICD-10 - Z23) Plan Of Treatment Pending Test Test Name Order Date MRI : Spine, Lumbosacral, without contra st 02/09/2025 Next Appt Details Provider Name:Tobi mccracken, 08/10/2025 10:00:00 AM, [address] [facility], [place], [id number], Insurance Providers Payer Name Payer Address Payer Phone Subscriber Number Group Number Insured Name Patient Relationship to Insured Coverage Start Date Coverage End Date MEDICARE PART B [address] [address] [place] [id number] Hayden Luna Self - patient is the insured [facility] [address] [place] [address] [id number] Hayden Luna Self - patient is the insured Medical (General) History Medical History History ICD Code Hypertension Hyperlipidemia Sinus/Allergy Arthritis Prostate Problems type 2 diabetes Surgical History Surgery Date(Month/Year) Prostatectomy
== END 2025-02-20 23:59 | disposition home or self-care (01) ==
LOC: RAD 15:10
PROVIDERS: PCP Family Medicine; Visit Provider Family Medicine
DX: M51.360 Other intervertebral disc degeneration, lumbar region with discogenic back pain only (principal); M48.061 Spinal stenosis, lumbar region without neurogenic claudication; M99.73 Connective tissue and disc stenosis of intervertebral foramina of lumbar region; M25.78 Osteophyte, vertebrae; M47.816 Spondylosis without myelopathy or radiculopathy, lumbar region; G89.29 Other chronic pain
CPT/HCPCS: 72148